=== PATIENT | male | born 1950 | race Caucasian/White ===

== ENCOUNTER → 2016-10-21 | Outpatient (CLI) | payer MEDICAID ==
[~2016-10-21] MED LIST: ASPI-496 PO; CALC-141 PO; ENAL1TAB5 PO; FURO-93 PO; HYDR-3341 PO; OMEP1CAP24 PO
== END | disposition home or self-care (01) ==
LOC: CFH 07:58
PROVIDERS: ATTEND Nurse Practitioner
DX: R91.1 Solitary pulmonary nodule (principal); G47.33 Obstructive sleep apnea (adult) (pediatric)
CPT/HCPCS: 71250

== ENCOUNTER → 2017-06-23 | Outpatient (CLI) | payer MEDICARE | END | disposition home or self-care (01) | LOC: CFH 07:50 | PROVIDERS: ATTEND Internal Medicine | DX: R91.8 Other nonspecific abnormal finding of lung field (principal); I25.10 Atherosclerotic heart disease of native coronary artery without angina pectoris | CPT/HCPCS: 71250 ==

== ENCOUNTER → 2018-09-20 | Outpatient (CLI) | payer MEDICARE | END | disposition home or self-care (01) | LOC: CFH 08:02 | PROVIDERS: ATTEND Nurse Practitioner | DX: R91.1 Solitary pulmonary nodule (principal) | CPT/HCPCS: 71250 ==

== ENCOUNTER 2019-05-06 08:18 | Emergency (ER) | payer MEDICARE ==
[~2019-05-06] VITALS: Ht 185.4 cm; Wt 169.5 kg
[2019-05-06 08:22] VITALS: BP 123/64
--- NOTE | 2019-05-06 09:05 | NUR ---
THIS IS A 68 YO M W/ C/O VOMITING AFTER MEALS FOR 2 WEEKS, RIGHT SIDED PAIN AND SOB. PATIENT DENIES DIARRHEA OR CONSTIPATION. RESPIRATIONS ARE EVEN AND UNLABORED. PATIENT IS IN NO ACUTE DISTRESS. PATIENT IS RESTING ON GURNEY AWARE OF POC. DENIES FURTHER NEEDS AT THIS TIME.
--- NOTE | 2019-05-06 09:08 | NUR ---
PATIENT TO RADIOLOGY.
[2019-05-06 09:15] LABS: BASOPHILS # (AUTO) 0.02 x10^3/uL (0-0.1); BASOPHILS % (AUTO) 0 % (0-1); EOSINOPHILS # (AUTO) 0.39 x10^3/uL (0-0.4); EOSINOPHILS % (AUTO) 5 % (1-7); LYMPHOCYTES # (AUTO) 1.39 x10^3/uL (1-3.4); LYMPHOCYTES % (AUTO) 16 % (22-44); MD NO; MEAN CORPUSCULAR HEMOGLOBIN 23.1 pg (27.5-34.5); MEAN CORPUSCULAR HGB CONC 30.2 g/dL (33.2-36.2); MEAN CORPUSCULAR VOLUME 76.5 fL (81-97); MONOCYTES # (AUTO) 0.63 x10^3/uL (0.2-0.8); MONOCYTES % (AUTO) 7 % (2-9); NEUTROPHILS # (AUTO) 6.14 x10^3/uL (1.8-6.8); NEUTROPHILS % (AUTO) 72 % (42-75); PLATELET COUNT 353 x10^3/uL (130-400); RED BLOOD COUNT 3.52 x10^6/uL (4.38-5.82); RED CELL DISTRIBUTION WIDTH 19.7 % (9.4-14.8)
--- NOTE | 2019-05-06 09:18 | NUR ---
PATIENT BACK FROM RADIOLOGY.
--- NOTE | 2019-05-06 09:24 | NUR ---
PATIENT AMBULATED TO THE BATHROOM WITH A STEADY GAIT AND GIVEN URINE SPECIMEN CONTAINER.
[2019-05-06 09:26] LABS: ANION GAP 5 mmol/L (5-15); CALCIUM 8.2 mg/dL (8.5-10.1); CHLORIDE 108 mmol/L (98-107)
[2019-05-06 09:29] LABS: ALANINE AMINOTRANSFERASE 20 U/L (12-78); ALKALINE PHOSPHATASE 238 U/L (45-117); BILIRUBIN,TOTAL 0.5 mg/dL (0.2-1.0); CREATININE 1.29 mg/dL (0.7-1.3); TOTAL PROTEIN 6.6 g/dL (6.4-8.2)
[2019-05-06 10:03] LABS: MICROSCOPIC NOT IND
[2019-05-06 10:08] LABS: CULTURE INDICATED? NO
[2019-05-06 10:29] LABS: TROPONIN I < 0.015 ng/mL (0.000-0.045)
--- NOTE | 2019-05-06 10:50 | NUR ---
DR. WAGGONER AT BEDSIDE AND IS RECOMMENDING HOSPITAL ADMISSION BUT PATIENT IS REFUSING TO BE ADMITTED. EDUCATED PATIENT ON LOW SALT DIET. ROOM AIR SPO2=97%.
--- NOTE | 2019-05-06 11:06 | NUR ---
Patient given discharge instructions and they have confirmed that they understand the instructions. Patient ambulatory with steady gait.
== END 2019-05-06 11:07 | disposition home or self-care (01) ==
LOC: ED 09:50
DX: K59.00 Constipation, unspecified (principal); I11.0 Hypertensive heart disease with heart failure; I50.9 Heart failure, unspecified; D64.9 Anemia, unspecified; K21.9 Gastro-esophageal reflux disease without esophagitis
CPT/HCPCS: 36415; 74022; 80053; 81003; 83690; 83880; 84484; 85025; 93005; 99284

== ENCOUNTER 2019-05-08 08:18 | Inpatient (IN) | payer MEDICARE ==
[~2019-05-08] VITALS: Ht 185.4 cm; Wt 162.6 kg
--- NOTE | 2019-05-08 08:49 | NUR ---
FIRST CONTACT WITH PT. PT C/O WEAKNESS, SOB X 2-2.5 WEEKS, POSSIBLE DX OF CHF AND ANEMIA, SEEN FOR SAME ON WEDNESDAY, DECLINED ADMIT DENIES CHEST PAIN OR PRESSURE/N/V. PT'S AOX4. RESPS EVEN AND UNLABORED. ALL MONITORS IN PLACE. CALL LIGHT WITHIN REACH. PA AT BEDSIDE TO EVALUATE AT THIS TIME.
[2019-05-08] MEDS ORDERED: OMEP-110 PO (08:52)
[2019-05-08] MEDS ORDERED: ATOR40TA78 PO (08:53)
[2019-05-08] MEDS ORDERED: POTA8TAB PO (08:53)
[2019-05-08] MEDS ORDERED: AMLO-150 PO (08:54)
--- NOTE | 2019-05-08 08:58 | NUR ---
PT BACK TO ROOM FROM RAD.
[2019-05-08 09:20] LABS: ALANINE AMINOTRANSFERASE 23 U/L (12-78); ALBUMIN 3.2 g/dL (3.4-5.0); ANION GAP 8 mmol/L (5-15); CALCIUM 8.3 mg/dL (8.5-10.1); CHLORIDE 108 mmol/L (98-107)
[2019-05-08 09:24] LABS: ALKALINE PHOSPHATASE 222 U/L (45-117); BILIRUBIN,TOTAL 0.6 mg/dL (0.2-1.0); TOTAL PROTEIN 6.8 g/dL (6.4-8.2); TROPONIN I < 0.015 ng/mL (0.000-0.045)
[2019-05-08 09:47] LABS: MEAN CORPUSCULAR HEMOGLOBIN 22.9 pg (27.5-34.5); MEAN CORPUSCULAR VOLUME 76.8 fL (81-97); MEAN PLATELET VOLUME 8.6 fL (7.4-10.4); PLATELET COUNT 373 x10^3/uL (130-400); RED BLOOD COUNT 3.82 x10^6/uL (4.38-5.82); RED CELL DISTRIBUTION WIDTH 19.1 % (9.4-14.8)
[2019-05-08 09:48] LABS: MEAN CORPUSCULAR HGB CONC 29.8 g/dL (33.2-36.2)
--- NOTE | 2019-05-08 09:49 | NUR ---
PT IS USING [employer] AT THIS TIME.
[2019-05-08] MEDS ORDERED: FUROSEMIDE 40 MG/4 ML IV ONE (10:00)
[2019-05-08] MEDS ORDERED: SODIUM CHLORIDE FLUSH 10ML SYR IVF PRN (10:00)
[2019-05-08] MEDS ORDERED: FUROSEMIDE 40 MG/4 ML ONE (10:06)
--- NOTE | 2019-05-08 10:11 | NUR ---
PT MEDICATED PER EMAR. PT TOLERATED WELL. URINAL AND BEDSIDE COMMODE AT BEDSIDE.
[2019-05-08 10:34] LABS: BASOPHILS # (AUTO) 0.08 x10^3/uL (0-0.1); BASOPHILS % (AUTO) 1 % (0-1); EOSINOPHILS # (AUTO) 0.35 x10^3/uL (0-0.4); EOSINOPHILS % (AUTO) 4 % (1-7); LYMPHOCYTES # (AUTO) 1.23 x10^3/uL (1-3.4); LYMPHOCYTES % (AUTO) 15 % (22-44); MD SCAN; MONOCYTES # (AUTO) 0.62 x10^3/uL (0.2-0.8); MONOCYTES % (AUTO) 8 % (2-9); NEUTROPHILS # (AUTO) 5.85 x10^3/uL (1.8-6.8); NEUTROPHILS % (AUTO) 72 % (42-75)
[2019-05-08] MEDS ORDERED: ONDANSETRON 2MG/ML, 2ML IVPush PRN (11:00)
[2019-05-08] MEDS ORDERED: NICOTINE 21 MG/24 HR PATCH.TD24 TD SCH (11:00)
[2019-05-08] MEDS ORDERED: ACETAMINOPHEN 325 MG TABLET PO PRN (11:00)
[2019-05-08] MEDS: INSULIN LISPRO 100 UNITS/ML, PEN SQ-INSULIN SCH ×3 (11:00→20:53)
[2019-05-08] MEDS ORDERED: ONDANSETRON ODT 4 MG PO PRN (11:00)
--- NOTE | 2019-05-08 11:02 | NUR ---
PT REFUSED NICOTIN PATCH AT THIS TIME. PT'S BG 93, NO INSULIN GIVEN PER PROTOCOL.
[2019-05-08] MEDS ORDERED: HEPARIN 5,000 UNITS/ML, 1ML ONE ×2 (11:04→18:54)
--- NOTE | 2019-05-08 11:16 | NUR ---
Oscar lopez in [facility] - 05/08/19 at [address] AT THIS TIME.
[2019-05-08] MEDS: HEPARIN 5,000 UNITS/ML, 1ML SQ SCH ×2 (11:18→19:12)
--- NOTE | 2019-05-08 11:18 | NUR ---
PT MEDICATED PER EMAR. PT TOLERATED WELL.
--- NOTE | 2019-05-08 11:40 | NUR ---
water given at this time. hospitalist ok'd to give some water.
--- NOTE | 2019-05-08 12:04 | NUR ---
hospital bed requesting from house keeping.
--- NOTE | 2019-05-08 12:10 | NUR ---
task rn note: PT SITTING UP IN BED WATCHING TELEVISION. NAD NOTED AT THIS TIME. RESPIRATIONS EVEN AND UNLABORED. CURRENTLY AWAITING HOSPITAL BED, WHICH ACCORDING TO PRIMARY RN HAS BEEN ORDERED.
--- NOTE | 2019-05-08 13:31 | NUR ---
DIETARY CALLED FOR PT'S TRAY AT THIS TIME. DIETARY AWARES OF NO CONCENTRATED SUGAR DIET FOR THIS PT.
--- NOTE | 2019-05-08 13:50 | NUR ---
HOSPITAL BED IN ROOM. PT RESTING IN HOSPITAL BED. ALL MONITORS IN PLACE. CALL LIGHT WITHIN REACH.
--- NOTE | 2019-05-08 13:55 | NUR ---
DIET TRAY PROVIDED AT THIS TIME.
--- NOTE | 2019-05-08 15:34 | NUR ---
BEDSIDE COMMODE AT BEDSIDE.
--- NOTE | 2019-05-08 16:04 | NUR ---
BG 96 AT THIS TIME.
--- NOTE | 2019-05-08 16:07 | NUR ---
MED ORDERED FROM PHARMACY AT THIS TIME.
[2019-05-08] MEDS: LACTOBACILLUS CHEW TABLET PO SCH ×2 (16:48→21:52)
--- NOTE | 2019-05-08 16:49 | NUR ---
PT MEDICATED PER EMAR. PT TOLERATED WELL.
--- NOTE | 2019-05-08 17:47 | NUR ---
DIET TRAY ORDERED AT THIS TIME.
[2019-05-08] MEDS ORDERED: CARVEDILOL 3.125 MG TABLET ONE (17:59)
[2019-05-08] MEDS: CARVEDILOL 6.25 MG TABLET PO SCH (18:00)
--- NOTE | 2019-05-08 18:05 | NUR ---
PT MEDICATED PER EMAR. PT TOLERATED WELL.
--- NOTE | 2019-05-08 18:37 | NUR ---
DIET TRAY PROVIDED AT THIS TIME.
--- NOTE | 2019-05-08 18:52 | NUR ---
Report from Jesusita PERSON. Pt eating dinner watching TV, TOMÁS, denies needs.
--- NOTE | 2019-05-08 18:59 | NUR ---
REPORT GIVEN TO HUMZA PERSON.
--- NOTE | 2019-05-08 20:14 | NUR ---
Pt resting in bed watching TV, denies needs.
--- NOTE | 2019-05-08 20:55 | NUR ---
Report called to Aditi PERSON on card tele. Floor ready for pt transport.
[2019-05-08 21:36] VITALS: BP 109/70
[2019-05-08] MEDS: ATORVASTATIN 20 MG TABLET PO SCH (21:52)
[2019-05-08] MEDS: NICOTINE 21 MG/24 HR PATCH.TD24 TD SCH (21:53)
[2019-05-09 00:39] VITALS: BP 115/70
[2019-05-09] MEDS: CARVEDILOL 6.25 MG TABLET PO SCH ×2 (04:16→17:28)
[2019-05-09] MEDS: HEPARIN 5,000 UNITS/ML, 1ML SQ SCH ×3 (04:16→19:59)
[2019-05-09 05:31] LABS: BASOPHILS # (AUTO) 0.08 x10^3/uL (0-0.1); BASOPHILS % (AUTO) 1 % (0-1); EOSINOPHILS # (AUTO) 0.33 x10^3/uL (0-0.4); EOSINOPHILS % (AUTO) 5 % (1-7); LYMPHOCYTES # (AUTO) 1.18 x10^3/uL (1-3.4); LYMPHOCYTES % (AUTO) 16 % (22-44); MD NO; MEAN CORPUSCULAR HEMOGLOBIN 22.7 pg (27.5-34.5); MEAN CORPUSCULAR HGB CONC 30.1 g/dL (33.2-36.2); MEAN CORPUSCULAR VOLUME 75.5 fL (81-97); MEAN PLATELET VOLUME 8.8 fL (7.4-10.4); MONOCYTES # (AUTO) 0.45 x10^3/uL (0.2-0.8); MONOCYTES % (AUTO) 6 % (2-9); NEUTROPHILS # (AUTO) 5.16 x10^3/uL (1.8-6.8); NEUTROPHILS % (AUTO) 72 % (42-75); PLATELET COUNT 353 x10^3/uL (130-400); RED BLOOD COUNT 3.56 x10^6/uL (4.38-5.82); RED CELL DISTRIBUTION WIDTH 19.4 % (9.4-14.8)
[2019-05-09 05:40] LABS: CHLORIDE 104 mmol/L (98-107)
[2019-05-09 05:52] LABS: % IRON SATURATION 5 % (20-55); ANION GAP 4 mmol/L (5-15); CALCIUM 8.5 mg/dL (8.5-10.1); CREATININE 1.38 mg/dL (0.7-1.3); IRON LEVEL 21 mcg/dL (65-175); TOTAL IRON BINDING CAPACITY 451 mcg/dL (250-450)
[2019-05-09] MEDS: INSULIN LISPRO 100 UNITS/ML, PEN SQ-INSULIN SCH ×4 (07:00→19:52)
[2019-05-09 07:20] VITALS: BP 118/75
[2019-05-09] MEDS: SENNA/DOCUSATE TABLET PO SCH (09:30)
[2019-05-09] MEDS: OMEPRAZOLE 20 MG CAPSULE.DR PO SCH (09:30)
[2019-05-09] MEDS: LACTOBACILLUS CHEW TABLET PO SCH ×3 (09:30→19:59)
[2019-05-09] MEDS: IRON SUCROSE COMPLEX 100MG/5ML IV SCH (10:45)
[2019-05-09 13:33] VITALS: BP 121/70
[2019-05-09] MEDS: FUROSEMIDE 20 MG/2 ML IV SCH (17:28)
[2019-05-09] MEDS: NICOTINE 21 MG/24 HR PATCH.TD24 TD SCH (19:25)
[2019-05-09 19:49] VITALS: BP 115/69
[2019-05-09] MEDS: ATORVASTATIN 20 MG TABLET PO SCH (19:59)
[2019-05-10 01:19] VITALS: BP 119/72
[2019-05-10] MEDS: HEPARIN 5,000 UNITS/ML, 1ML SQ SCH ×3 (03:11→19:43)
[2019-05-10] MEDS: CARVEDILOL 6.25 MG TABLET PO SCH ×2 (06:23→17:10)
[2019-05-10 06:48] LABS: ANION GAP 8 mmol/L (5-15); CALCIUM 8.6 mg/dL (8.5-10.1); CHLORIDE 106 mmol/L (98-107); CREATININE 1.31 mg/dL (0.7-1.3)
[2019-05-10 06:51] LABS: MEAN CORPUSCULAR HEMOGLOBIN 22.6 pg (27.5-34.5); MEAN CORPUSCULAR VOLUME 75.4 fL (81-97); MEAN PLATELET VOLUME 8.5 fL (7.4-10.4); PLATELET COUNT 346 x10^3/uL (130-400); RED BLOOD COUNT 3.65 x10^6/uL (4.38-5.82); RED CELL DISTRIBUTION WIDTH 19.4 % (9.4-14.8)
[2019-05-10 07:15] LABS: BASOPHILS # (AUTO) 0.05 x10^3/uL (0-0.1); BASOPHILS % (AUTO) 1 % (0-1); EOSINOPHILS # (AUTO) 0.37 x10^3/uL (0-0.4); EOSINOPHILS % (AUTO) 5 % (1-7); LYMPHOCYTES # (AUTO) 1.32 x10^3/uL (1-3.4); LYMPHOCYTES % (AUTO) 19 % (22-44); MD SCAN; MONOCYTES # (AUTO) 0.55 x10^3/uL (0.2-0.8); MONOCYTES % (AUTO) 8 % (2-9); NEUTROPHILS # (AUTO) 4.71 x10^3/uL (1.8-6.8); NEUTROPHILS % (AUTO) 67 % (42-75)
[2019-05-10] MEDS: INSULIN LISPRO 100 UNITS/ML, PEN SQ-INSULIN SCH ×4 (07:35→19:48)
[2019-05-10 07:53] VITALS: BP 115/72
[2019-05-10] MEDS: IRON SUCROSE COMPLEX 100MG/5ML IV SCH ×2 (08:02→11:26)
[2019-05-10] MEDS: LACTOBACILLUS CHEW TABLET PO SCH ×3 (08:03→19:43)
[2019-05-10] MEDS: SENNA/DOCUSATE TABLET PO SCH (08:03)
[2019-05-10] MEDS: FUROSEMIDE 20 MG/2 ML IV SCH ×3 (08:03→17:09)
[2019-05-10] MEDS: OMEPRAZOLE 20 MG CAPSULE.DR PO SCH (08:04)
[2019-05-10 13:48] VITALS: BP 130/70
[2019-05-10 18:56] VITALS: BP 119/69
[2019-05-10] MEDS: ATORVASTATIN 20 MG TABLET PO SCH (19:43)
[2019-05-10] MEDS: NICOTINE 21 MG/24 HR PATCH.TD24 TD SCH (19:44)
[2019-05-11 00:50] VITALS: BP 112/69
[2019-05-11] MEDS: HEPARIN 5,000 UNITS/ML, 1ML SQ SCH (03:18)
[2019-05-11 04:47] LABS: MEAN CORPUSCULAR HEMOGLOBIN 23.1 pg (27.5-34.5); MEAN CORPUSCULAR HGB CONC 30.4 g/dL (33.2-36.2); MEAN CORPUSCULAR VOLUME 76.1 fL (81-97); MEAN PLATELET VOLUME 8.4 fL (7.4-10.4); PLATELET COUNT 368 x10^3/uL (130-400); RED BLOOD COUNT 3.67 x10^6/uL (4.38-5.82); RED CELL DISTRIBUTION WIDTH 18.9 % (9.4-14.8)
[2019-05-11 04:52] LABS: ALBUMIN 3.2 g/dL (3.4-5.0); ANION GAP 6 mmol/L (5-15); CALCIUM 8.6 mg/dL (8.5-10.1); CHLORIDE 106 mmol/L (98-107); CREATININE 1.49 mg/dL (0.7-1.3)
[2019-05-11 05:46] LABS: BASOPHILS # (AUTO) 0.07 x10^3/uL (0-0.1); BASOPHILS % (AUTO) 1 % (0-1); EOSINOPHILS # (AUTO) 0.32 x10^3/uL (0-0.4); EOSINOPHILS % (AUTO) 4 % (1-7); LYMPHOCYTES # (AUTO) 1.51 x10^3/uL (1-3.4); LYMPHOCYTES % (AUTO) 19 % (22-44); MD SCAN; MONOCYTES # (AUTO) 0.68 x10^3/uL (0.2-0.8); MONOCYTES % (AUTO) 9 % (2-9); NEUTROPHILS # (AUTO) 5.25 x10^3/uL (1.8-6.8); NEUTROPHILS % (AUTO) 67 % (42-75)
[2019-05-11 05:53] VITALS: BP 118/73
[2019-05-11] MEDS: CARVEDILOL 6.25 MG TABLET PO SCH (05:56)
[2019-05-11] MEDS: INSULIN LISPRO 100 UNITS/ML, PEN SQ-INSULIN SCH (07:00)
[2019-05-11 07:05] VITALS: BP 122/74
[2019-05-11] MEDS: IRON SUCROSE COMPLEX 100MG/5ML IV SCH (07:58)
[2019-05-11] MEDS: FUROSEMIDE 20 MG/2 ML IV SCH (07:58)
[2019-05-11] MEDS: LACTOBACILLUS CHEW TABLET PO SCH (07:59)
[2019-05-11] MEDS: SENNA/DOCUSATE TABLET PO SCH (07:59)
[2019-05-11] MEDS: OMEPRAZOLE 20 MG CAPSULE.DR PO SCH (07:59)
[2019-05-11] MEDS ORDERED: CARV6.2512 PO (08:55)
[2019-05-11] MEDS ORDERED: FURO-93 PO (08:55)
[2019-05-11] MEDS ORDERED: FERR325T18 PO (08:55)
== END 2019-05-11 11:23 | disposition home or self-care (01) | DRG 292 ==
LOC: ED 10:00 → EDIP 10:05 → 5SO 21:05 → DCLOUNGE 05-11 11:09
PROVIDERS: ADMIT Internal Medicine; ATTEND Hospitalist
DX: I11.0 Hypertensive heart disease with heart failure (principal); Z68.42 Body mass index [BMI] 45.0-49.9, adult; E66.01 Morbid (severe) obesity due to excess calories; D50.9 Iron deficiency anemia, unspecified; G47.30 Sleep apnea, unspecified; I50.43 Acute on chronic combined systolic (congestive) and diastolic (congestive) heart failure; F17.210 Nicotine dependence, cigarettes, uncomplicated; J44.9 Chronic obstructive pulmonary disease, unspecified; K21.9 Gastro-esophageal reflux disease without esophagitis; K59.00 Constipation, unspecified; E78.5 Hyperlipidemia, unspecified; R73.03 Prediabetes; Z71.6 Tobacco abuse counseling; Z88.8 Allergy status to other drugs, medicaments and biological substances; Z86.73 Personal history of transient ischemic attack (TIA), and cerebral infarction without residual deficits
CPT/HCPCS: 36415; 71045; 74022; 80048; 80053; 81003; 82040; 82274; 82728; 82962; 83036; 83540; 83550; 83690; 83735; 83880; 84100; 84484; 85025; 85379; 87070; 87205; 93005; 93306; 96374; G0378; J1644; J1756; J1940

== ENCOUNTER → 2019-10-19 | Outpatient (CLI) | payer MEDICARE ==
[~2019-10-19] MED LIST changes: +AMLO-150 PO; +ATOR40TA78 PO; +CARV6.2512 PO; +FERR325T18 PO; +OMEP-110 PO; +POTA8TAB PO
== END | disposition home or self-care (01) ==
LOC: CVU 06:45
PROVIDERS: ATTEND Physician Assistant Medical
DX: I08.3 Combined rheumatic disorders of mitral, aortic and tricuspid valves (principal); I11.0 Hypertensive heart disease with heart failure; I50.21 Acute systolic (congestive) heart failure; R06.02 Shortness of breath
CPT/HCPCS: 93306

== ENCOUNTER 2019-10-20 13:46 | Emergency (ER) | payer MEDICARE ==
[~2019-10-20] VITALS: Ht 185.4 cm; Wt 170.9 kg
--- NOTE | 2019-10-20 14:58 | NUR ---
Pt to room from lobby via wheelchair.
--- NOTE | 2019-10-20 15:21 | NUR ---
PT HAS CO GENERALIZED PAIN IN ABDOMEN, ARMS AND LEGS. PT STATES HE IS SWOLLEN AND ON A NEW DIURETIC. PT STATES HE HAS BEEN VOIDING, BUT SYMPTOMS WORSENED, RECENT COLONOSCOPY AND RECIEVED BLOOD. PT STATES HE MAY BE FLUID OVERLOADED. PT SOB SITTING. PLACED ON 2 L O2. PACKAGE LINE OPERATOR APPLIED. EXTREMITIES 3+ EDEMA, SCROTAL EDEMA
[2019-10-20] MEDS ORDERED: SODIUM CHLORIDE FLUSH 10ML SYR IVF ONE (16:00)
[2019-10-20 16:09] LABS: BASOPHILS # (AUTO) 0.02 x10^3/uL (0-0.1); BASOPHILS % (AUTO) 0 % (0-1); EOSINOPHILS # (AUTO) 0.47 x10^3/uL (0-0.4); EOSINOPHILS % (AUTO) 5 % (1-7); LYMPHOCYTES # (AUTO) 1.04 x10^3/uL (1-3.4); LYMPHOCYTES % (AUTO) 12 % (22-44); MD NO; MEAN CORPUSCULAR HEMOGLOBIN 26.7 pg (27.5-34.5); MEAN CORPUSCULAR HGB CONC 30.8 g/dL (33.2-36.2); MEAN CORPUSCULAR VOLUME 86.9 fL (81-97); MEAN PLATELET VOLUME 8.3 fL (7.4-10.4); MONOCYTES # (AUTO) 0.78 x10^3/uL (0.2-0.8); MONOCYTES % (AUTO) 9 % (2-9); NEUTROPHILS # (AUTO) 6.58 x10^3/uL (1.8-6.8); NEUTROPHILS % (AUTO) 74 % (42-75); PLATELET COUNT 329 x10^3/uL (130-400); RED BLOOD COUNT 3.45 x10^6/uL (4.38-5.82); RED CELL DISTRIBUTION WIDTH 20.5 % (9.4-14.8)
[2019-10-20 16:20] LABS: ALANINE AMINOTRANSFERASE 17 U/L (12-78); ALBUMIN 3.6 g/dL (3.4-5.0); ANION GAP 7 mmol/L (5-15); CALCIUM 9.5 mg/dL (8.5-10.1); CHLORIDE 100 mmol/L (98-107); CREATININE 1.78 mg/dL (0.7-1.3)
[2019-10-20 16:24] LABS: ALKALINE PHOSPHATASE 226 U/L (45-117); BILIRUBIN,TOTAL 0.7 mg/dL (0.2-1.0); TOTAL PROTEIN 7.8 g/dL (6.4-8.2); TROPONIN I < 0.015 ng/mL (0.000-0.045)
--- NOTE | 2019-10-20 16:42 | NUR ---
PT BACK FROM IMAGING. VOIDED 800 ML CLEAR YELLOW
--- NOTE | 2019-10-20 17:50 | NUR ---
MD AT BEDSIDE, PLAN TO DC
--- NOTE | 2019-10-20 18:45 | NUR ---
DPatient/Caregiver given discharge instructions and they have confirmed that they understand the instructions. Patient wheeled to dc area
[2019-10-20 18:46] VITALS: BP 145/85
== END 2019-10-20 18:47 | disposition home or self-care (01) ==
LOC: ED 15:03
DX: M79.10 Myalgia, unspecified site (principal); R06.00 Dyspnea, unspecified; R07.9 Chest pain, unspecified; R94.31 Abnormal electrocardiogram [ECG] [EKG]; I11.0 Hypertensive heart disease with heart failure; I50.9 Heart failure, unspecified; K21.9 Gastro-esophageal reflux disease without esophagitis; F17.200 Nicotine dependence, unspecified, uncomplicated
CPT/HCPCS: 36415; 71046; 80053; 83880; 84484; 85025; 93005; 99285

== ENCOUNTER 2019-12-12 07:35 | Outpatient (CLI) | payer MEDICARE | END 2019-12-12 23:59 | disposition home or self-care (01) | LOC: CVU 07:35 | PROVIDERS: ATTEND Nurse Practitioner Family | DX: I11.9 Hypertensive heart disease without heart failure (principal); I08.0 Rheumatic disorders of both mitral and aortic valves | CPT/HCPCS: 93308; 93321; 93325 ==

== ENCOUNTER → 2019-12-19 | Outpatient (CLI) | payer MEDICARE ==
[2019-12-19 13:01] LABS: BASOPHILS # (AUTO) 0.09 x10^3/uL (0-0.1); BASOPHILS % (AUTO) 1 % (0-1); EOSINOPHILS # (AUTO) 0.39 x10^3/uL (0-0.4); EOSINOPHILS % (AUTO) 5 % (1-7); LYMPHOCYTES # (AUTO) 0.92 x10^3/uL (1-3.4); LYMPHOCYTES % (AUTO) 11 % (22-44); MD NO; MEAN CORPUSCULAR HEMOGLOBIN 26.8 pg (27.5-34.5); MEAN CORPUSCULAR HGB CONC 30.3 g/dL (33.2-36.2); MEAN CORPUSCULAR VOLUME 88.4 fL (81-97); MEAN PLATELET VOLUME 8.9 fL (7.4-10.4); MONOCYTES # (AUTO) 0.99 x10^3/uL (0.2-0.8); MONOCYTES % (AUTO) 12 % (2-9); NEUTROPHILS # (AUTO) 5.85 x10^3/uL (1.8-6.8); NEUTROPHILS % (AUTO) 71 % (42-75); PLATELET COUNT 270 x10^3/uL (130-400); RED BLOOD COUNT 3.66 x10^6/uL (4.38-5.82)
[2019-12-19 13:23] LABS: CHLORIDE 103 mmol/L (98-107)
[2019-12-19 13:38] LABS: ANION GAP 8 mmol/L (5-15); CALCIUM 9.6 mg/dL (8.5-10.1); CREATININE 1.55 mg/dL (0.7-1.3)
== END | disposition home or self-care (01) ==
LOC: CFH 08:56
PROVIDERS: ATTEND Nurse Practitioner Family
DX: E78.2 Mixed hyperlipidemia (principal); I11.9 Hypertensive heart disease without heart failure; J84.9 Interstitial pulmonary disease, unspecified; D64.9 Anemia, unspecified; I34.0 Nonrheumatic mitral (valve) insufficiency; I50.21 Acute systolic (congestive) heart failure; R06.02 Shortness of breath
CPT/HCPCS: 36415; 71046; 80048; 83880; 85025

== ENCOUNTER 2020-01-10 09:28 | Day surgery (SDC) | payer MEDICARE ==
[~2020-01-10] VITALS: Ht 185.4 cm; Wt 170.4 kg
[2020-01-10] MEDS ORDERED: SODIUM CHLORIDE 0.9% 1,000 ML IV SCH ×2 (10:30→12:56)
[2020-01-10] MEDS ORDERED: TORS20TA2 PO (10:36)
[2020-01-10] MEDS ORDERED: Calcium PO (10:36)
[2020-01-10] MEDS ORDERED: POTA10TA6 PO (10:36)
[2020-01-10] MEDS ORDERED: Albuterol HFA INH (10:39)
[2020-01-10 10:46] VITALS: BP 132/78
[2020-01-10 11:07] LABS: MEAN CORPUSCULAR HEMOGLOBIN 26.5 pg (27.5-34.5); MEAN CORPUSCULAR HGB CONC 29.4 g/dL (33.2-36.2); MEAN CORPUSCULAR VOLUME 90.2 fL (81-97); MEAN PLATELET VOLUME 7.7 fL (7.4-10.4); PLATELET COUNT 280 x10^3/uL (130-400); RED BLOOD COUNT 3.34 x10^6/uL (4.38-5.82); RED CELL DISTRIBUTION WIDTH 20.4 % (9.4-14.8)
[2020-01-10 11:11] LABS: ANION GAP 4 mmol/L (5-15); CALCIUM 9.2 mg/dL (8.5-10.1); CHLORIDE 107 mmol/L (98-107); CREATININE 1.35 mg/dL (0.7-1.3)
[2020-01-10 11:18] LABS: BASOPHILS # (AUTO) 0.02 x10^3/uL (0-0.1); BASOPHILS % (AUTO) 0 % (0-1); EOSINOPHILS # (AUTO) 0.38 x10^3/uL (0-0.4); EOSINOPHILS % (AUTO) 6 % (1-7); LYMPHOCYTES # (AUTO) 0.92 x10^3/uL (1-3.4); LYMPHOCYTES % (AUTO) 14 % (22-44); MD SCAN; MONOCYTES % (AUTO) 11 % (2-9); NEUTROPHILS % (AUTO) 69 % (42-75)
[2020-01-10] MEDS ORDERED: PROPOFOL 10 MG/ML, 20ML ONE (11:25)
[2020-01-10] MEDS ORDERED: BIVALIRUDIN 250 MG ONE (11:42)
[2020-01-10] MEDS ORDERED: LIDOCAINE-MPF 1%, 5ML ONE (11:42)
[2020-01-10] MEDS ORDERED: TICAGRELOR 90 MG TABLET ONE (11:42)
[2020-01-10] MEDS ORDERED: MIDAZOLAM 1 MG/ML, 5ML ONE (11:42)
[2020-01-10] MEDS ORDERED: FENTANYL PF 100 MCG/2ML ONE (11:42)
[2020-01-10] MEDS ORDERED: VERAPAMIL 2.5 MG/ML, 2ML ONE (11:42)
[2020-01-10] MEDS ORDERED: HEPARIN 1,000 UNITS/ML, 10ML ONE (11:43)
[2020-01-10] MEDS ORDERED: NITROGLYCERIN 30 MCG/ML, 20ML VIAL ONE (11:43)
== END 2020-01-10 15:23 | disposition home or self-care (01) ==
LOC: CACL 09:28
PROVIDERS: ATTEND Internal Medicine Cardiovascular Disease
DX: R07.89 Other chest pain (principal); I34.0 Nonrheumatic mitral (valve) insufficiency; Z20.828 Contact with and (suspected) exposure to other viral communicable diseases; I11.0 Hypertensive heart disease with heart failure; I50.21 Acute systolic (congestive) heart failure; E78.2 Mixed hyperlipidemia; F17.210 Nicotine dependence, cigarettes, uncomplicated; Z79.899 Other long term (current) drug therapy; Z88.1 Allergy status to other antibiotic agents; Z82.49 Family history of ischemic heart disease and other diseases of the circulatory system
CPT/HCPCS: 36415; 80048; 85025; 87635; 93312; 93321; 93325; 93460; 99156; C1769; C1894; J1644; J2250; J2704; J3010; Q9967; J0583

== ENCOUNTER → 2020-04-11 | Outpatient (CLI) | payer MEDICARE ==
[~2020-04-11] MED LIST changes: +ALBU18HF INH; +Albuterol HFA INH; +Calcium PO; +FEROSOL PO; +FERR324T18 PO; +FURO80TA77 PO; +PANT40TA6 PO; +POTA10TA17 PO; +POTA10TA6 PO; +SENN1TAB94 PO; +TORS20TA2 PO
== END | disposition home or self-care (01) ==
LOC: STAR 09:27
PROVIDERS: ATTEND Internal Medicine
DX: Z20.828 Contact with and (suspected) exposure to other viral communicable diseases (principal)
CPT/HCPCS: 87635

== ENCOUNTER 2020-04-16 07:15 | Outpatient (CLI) | payer MEDICARE ==
[2020-04-16] VITALS (15 sets, daily range): BP systolic 129–156; BP diastolic 68–82
[~2020-04-16] VITALS: Ht 185.4 cm; Wt 167.3 kg
[2020-04-16] MEDS ORDERED: SODIUM CHLORIDE 0.9% 1,000ML IV SCH (08:00)
[2020-04-16] MEDS ORDERED: ONDANSETRON 2MG/ML, 2ML IV PRN (08:00)
[2020-04-16] MEDS ORDERED: POTA20TA6 PO (08:29)
[2020-04-16] MEDS ORDERED: ATOR40TA78 PO (08:29)
[2020-04-16 08:32] LABS: INTERNATIONAL NORMALIZED RATIO 1.29 (0.93-1.1); PROTHROMBIN TIME 13.6 Seconds (9.6-11.5)
[2020-04-16 08:34] LABS: ANION GAP 6 mmol/L (5-15); CHLORIDE 103 mmol/L (98-107); CREATININE 1.68 mg/dL (0.7-1.3)
[2020-04-16 08:37] LABS: BASOPHILS % (AUTO) 2 % (0-1); EOSINOPHILS % (AUTO) 7 % (1-7); LYMPHOCYTES % (AUTO) 10 % (22-44); MEAN CORPUSCULAR HEMOGLOBIN 25.6 pg (27.5-34.5); MEAN PLATELET VOLUME 7.9 fL (7.4-10.4); MONOCYTES % (AUTO) 12 % (2-9); NEUTROPHILS % (AUTO) 69 % (42-75); PLATELET COUNT 304 x10^3/uL (130-400); RED BLOOD COUNT 2.62 x10^6/uL (4.38-5.82)
[2020-04-16 08:40] LABS: MEAN CORPUSCULAR HGB CONC 29.4 g/dL (33.2-36.2)
[2020-04-16 08:41] LABS: MD NO
== END 2020-04-16 23:59 | disposition home or self-care (01) ==
LOC: CACL 07:15 → INFUSION 07:15 → UNDOADMIN 07:58 → ORIP 07:58 → EDSTATUS 09:30 → INFUSION 23:59
PROVIDERS: ATTEND Internal Medicine Cardiovascular Disease
DX: I34.0 Nonrheumatic mitral (valve) insufficiency (principal); D50.9 Iron deficiency anemia, unspecified; R94.31 Abnormal electrocardiogram [ECG] [EKG]; I13.0 Hypertensive heart and chronic kidney disease with heart failure and stage 1 through stage 4 chronic kidney disease, or unspecified chronic kidney disease; I50.32 Chronic diastolic (congestive) heart failure; N18.9 Chronic kidney disease, unspecified; K21.9 Gastro-esophageal reflux disease without esophagitis; E78.5 Hyperlipidemia, unspecified; E66.9 Obesity, unspecified; Z68.42 Body mass index [BMI] 45.0-49.9, adult; Z87.891 Personal history of nicotine dependence
CPT/HCPCS: 36415; 36430; 80048; 83880; 85025; 85610; 86850; 86900; 86923; 93005; P9016

== ENCOUNTER 2020-04-20 12:05 | Emergency (ER) | payer MEDICARE ==
[~2020-04-20] VITALS: Ht 185.4 cm; Wt 169.1 kg
[~2020-04-20 12:05] MED LIST changes: +POTA20TA6 PO
[2020-04-20] MEDS ORDERED: SODIUM CHLORIDE FLUSH 10ML SYR IVF ONE (14:30)
[2020-04-20 14:48] LABS: BASOPHILS % (AUTO) 2 % (0-1); EOSINOPHILS % (AUTO) 7 % (1-7); LYMPHOCYTES % (AUTO) 10 % (22-44); MEAN CORPUSCULAR HGB CONC 30.1 g/dL (33.2-36.2); MEAN PLATELET VOLUME 8.3 fL (7.4-10.4); MONOCYTES % (AUTO) 11 % (2-9); NEUTROPHILS % (AUTO) 71 % (42-75); PLATELET COUNT 281 x10^3/uL (130-400); RED BLOOD COUNT 3.14 x10^6/uL (4.38-5.82); RED CELL DISTRIBUTION WIDTH 21.7 % (9.4-14.8)
[2020-04-20 14:53] LABS: MD NO
[2020-04-20 15:01] LABS: CHLORIDE 103 mmol/L (98-107)
[2020-04-20 15:07] LABS: ANION GAP 6 mmol/L (5-15)
[2020-04-20 15:09] LABS: ALANINE AMINOTRANSFERASE 14 U/L (12-78); ALBUMIN 3.2 g/dL (3.4-5.0); ALKALINE PHOSPHATASE 299 U/L (45-117); BILIRUBIN,TOTAL 1.3 mg/dL (0.2-1.0); CALCIUM 8.7 mg/dL (8.5-10.1); CREATININE 1.54 mg/dL (0.7-1.3); TOTAL PROTEIN 7.1 g/dL (6.4-8.2)
[2020-04-20 16:12] VITALS: BP 124/54
== END 2020-04-20 16:14 | disposition other institution (70) ==
LOC: ED 13:06
DX: D53.9 Nutritional anemia, unspecified (principal); R06.02 Shortness of breath; I11.0 Hypertensive heart disease with heart failure; K21.9 Gastro-esophageal reflux disease without esophagitis; I50.9 Heart failure, unspecified; Z87.891 Personal history of nicotine dependence
CPT/HCPCS: 36415; 80053; 83605; 85025; 86850; 86900; 93005; 99284

== ENCOUNTER 2020-05-30 12:53 | Inpatient (IN) | payer MEDICARE ==
[~2020-05-30] VITALS: Ht 185.4 cm; Wt 159.0 kg
[2020-05-30] MEDS ORDERED: SODIUM CHLORIDE FLUSH 10ML SYR IVF ONE (13:30)
--- NOTE | 2020-05-30 13:32 | NUR ---
PT TO ROOM 11 W/ C/O INCREASING WEIGHT GAIN 20 LBS X 2 WEEKS. PT STATES HE HAS HX CHF HAS BEEN ADMMITTED FOR THIS BEFORE. PT NOTED TO HAVE HARD TIME BREATHING. PLACED ON 6L NC SATIN 97%.PT NOTED TO HAVE EXTREME EDEMA THROUGHOUT LEGS, THIGHS, AND ABDOMEN. PT ON MONITORS. PIV INITIATED. WARM BLANKET PROVIDED.
[2020-05-30 13:41] LABS: RED CELL DISTRIBUTION WIDTH 22.3 % (9.4-14.8)
--- NOTE | 2020-05-30 13:46 | NUR ---
UA COLLECTED, LABELED AND SENT TO LAB.
[2020-05-30 13:52] LABS: ALANINE AMINOTRANSFERASE 13 U/L (12-78); ALBUMIN 3.1 g/dL (3.4-5.0); ANION GAP 7 mmol/L (5-15); CALCIUM 8.6 mg/dL (8.5-10.1); CHLORIDE 99 mmol/L (98-107); CREATININE 1.86 mg/dL (0.7-1.3)
[2020-05-30 14:00] LABS: % IRON SATURATION 4 % (20-55); ALKALINE PHOSPHATASE 301 U/L (45-117); BILIRUBIN,TOTAL 1.4 mg/dL (0.2-1.0); IRON LEVEL 19 mcg/dL (65-175); TOTAL IRON BINDING CAPACITY 440 mcg/dL (250-450); TROPONIN I < 0.015 ng/mL (0.000-0.045)
[2020-05-30 14:04] LABS: MICROSCOPIC INDICATED
[2020-05-30 14:09] LABS: MEAN CORPUSCULAR HEMOGLOBIN 26.4 pg (27.5-34.5); PLATELET COUNT 325 x10^3/uL (130-400); RED BLOOD COUNT 3.34 x10^6/uL (4.38-5.82)
[2020-05-30 14:10] LABS: MEAN CORPUSCULAR HGB CONC 29.8 g/dL (33.2-36.2)
[2020-05-30] MEDS ORDERED: FUROSEMIDE 40 MG/4 ML ONE (14:11)
[2020-05-30 14:13] LABS: MD YES
[2020-05-30 14:14] LABS: BAND#(MANUAL) 0.08 x10^3/uL; BANDS%(MANUAL) 1 % (0-7); EOS#(MANUAL) 0.32 x10^3/uL (0.0-0.4); EOS% (MANUAL) 4 % (1-7); LYMPHS% (MANUAL) 10 % (22-44); MONOS#(MANUAL) 0.48 x10^3/uL (0.3-2.7); MONOS% (MANUAL) 6 % (2-9); SEG#(MANUAL) 6.32 x10^3/uL (1.8-6.8); SEGS% (MANUAL) 79 % (42-75)
[2020-05-30 14:15] LABS: ANISOCYTOSIS 2+; HYPOCHROMIA 1+; MICROCYTOSIS 1+; POLYCHROMASIA 1+
[2020-05-30 14:16] LABS: <PLATELET ESTIMATE> ADEQUATE; <PLT MORPHOLOGY> NORMAL PLT MORPH; TEAR DROPS 1+
[2020-05-30] MEDS ORDERED: FUROSEMIDE 40 MG/4 ML IV ONE (14:30)
--- NOTE | 2020-05-30 14:37 | NUR ---
PT RESTING ON GURNEY. NADN. JUAREZ.
--- NOTE | 2020-05-30 14:39 | NUR ---
HOSPITAL BED ORDERED FOR PT.
[2020-05-30] MEDS ORDERED: BISACODYL 10 MG SUPP PR PRN (15:30)
[2020-05-30] MEDS ORDERED: ALBUTEROL HFA 90 MCG/SPRAY INH PRN (15:30)
[2020-05-30] MEDS ORDERED: DOCUSATE 100 MG CAPSULE PO PRN (15:30)
[2020-05-30] MEDS ORDERED: hydrALAzine 20 MG/ML, 1ML IVPush PRN (15:30)
[2020-05-30] MEDS ORDERED: POLYETHYLENE GLYCOL 17 GM PACKET PO PRN (15:30)
[2020-05-30] MEDS ORDERED: OXYcodone IR 5MG TABLET PO PRN (15:30)
[2020-05-30] MEDS ORDERED: LORazepam 2 MG/ML, 1ML IVPush PRN (15:30)
[2020-05-30] MEDS ORDERED: ONDANSETRON 2MG/ML, 2ML IVPush PRN (15:30)
[2020-05-30] MEDS ORDERED: TEMAZEPAM 15 MG CAPSULE PO PRN (15:30)
[2020-05-30] MEDS ORDERED: MELATONIN 5 MG TABLET PO PRN (15:30)
[2020-05-30] MEDS ORDERED: ACETAMINOPHEN 325 MG TABLET PO PRN (15:30)
[2020-05-30] MEDS ORDERED: SENNA/DOCUSATE TABLET PO PRN (15:30)
--- NOTE | 2020-05-30 15:39 | NUR ---
PT MOVED FROM [facility] TO HOSPITAL BED. REPOSITIONED FOR COMFORT.
[2020-05-30] MEDS ORDERED: FUROSEMIDE 80 MG TABLET PO SCH (16:00)
[2020-05-30] MEDS ORDERED: FUROSEMIDE 40 MG/4 ML IV SCH (17:00)
--- NOTE | 2020-05-30 17:07 | NUR ---
YELLOW SLIP SENT TO PHARMACY FOR MEDS PER JUL.
--- NOTE | 2020-05-30 17:09 | NUR ---
PT PROVIDED W/ DINNER TRAY.
[2020-05-30] MEDS ORDERED: CARVEDILOL 6.25 MG TABLET ONE (17:26)
[2020-05-30] MEDS: CARVEDILOL 6.25 MG TABLET PO SCH (17:28)
[2020-05-30] MEDS: BUMETANIDE 0.25 MG/ML, 4ML IV SCH ×3 (17:29→20:44)
[2020-05-30] MEDS: METOLAZONE 5 MG TABLET PO SCH (17:29)
--- NOTE | 2020-05-30 19:22 | NUR ---
PT RESTING IN BED. NADN.
--- NOTE | 2020-05-30 20:40 | NUR ---
REPORT GIVEN TO FAYE INMAN RN. ALL QUESTIONS ANSWERED. AWAITING PT TRANSPORT.
[2020-05-30] MEDS: ATORVASTATIN 20 MG TABLET PO SCH (20:44)
[2020-05-30] MEDS: FERROUS GLUCONATE 324 MG TABLET PO SCH (20:44)
[2020-05-30] MEDS ORDERED: POTASSIUM CHLORIDE 20 MEQ TAB.ER.PRT PO SCH (21:00)
[2020-05-30] MEDS ORDERED: FAMOTIDINE 20 MG TABLET PO SCH (21:00)
--- NOTE | 2020-05-30 21:03 | NUR ---
PT HAD ONE BM PRIOR TO TRANSPORT. PT SHEETS CHANGED. [facility] PERFORMED. PT RESTING ON BED. TRANSPORTED TO FLOOR W/ ALL PERSONAL BELONGINGS.
[2020-05-30 21:24] VITALS: BP 125/86
[2020-05-30] MEDS ORDERED: FERR325T16 PO (21:32)
[2020-05-30] MEDS ORDERED: BISA-49 PO (21:40)
[2020-05-31 03:05] VITALS: BP 118/72
[2020-05-31] MEDS: CARVEDILOL 6.25 MG TABLET PO SCH ×2 (04:33→17:05)
[2020-05-31 06:11] LABS: BASOPHILS % (AUTO) 2 % (0-1); EOSINOPHILS % (AUTO) 5 % (1-7); LYMPHOCYTES % (AUTO) 9 % (22-44); MEAN CORPUSCULAR HEMOGLOBIN 26.6 pg (27.5-34.5); MEAN CORPUSCULAR HGB CONC 30.7 g/dL (33.2-36.2); MEAN PLATELET VOLUME 7.9 fL (7.4-10.4); MONOCYTES % (AUTO) 12 % (2-9); NEUTROPHILS % (AUTO) 73 % (42-75); PLATELET COUNT 311 x10^3/uL (130-400); RED BLOOD COUNT 3.17 x10^6/uL (4.38-5.82)
[2020-05-31 06:15] LABS: ANION GAP 9 mmol/L (5-15); CALCIUM 8.8 mg/dL (8.5-10.1); CHLORIDE 99 mmol/L (98-107); CREATININE 1.76 mg/dL (0.7-1.3)
[2020-05-31 06:46] LABS: MD SCAN
[2020-05-31] MEDS: BUMETANIDE 0.25 MG/ML, 4ML IV SCH ×3 (09:09→20:21)
[2020-05-31] MEDS: METOLAZONE 5 MG TABLET PO SCH (09:10)
[2020-05-31] MEDS: OMEPRAZOLE 20 MG CAPSULE.DR PO SCH (09:10)
[2020-05-31] MEDS: FERROUS GLUCONATE 324 MG TABLET PO SCH (09:10)
[2020-05-31 09:15] VITALS: BP 117/63
[2020-05-31] MEDS ORDERED: IRON SUCROSE COMPLEX 100MG/5ML IV SCH (13:00)
[2020-05-31 13:40] VITALS: BP 121/77
[2020-05-31] MEDS: CEFTRIAXONE PMX 2GM/50ML 50 ML IVPB SCH (13:59)
[2020-05-31] MEDS ORDERED: ERGOCALCIFEROL 50,000 UNIT CAPSULE PO SCH (16:30)
[2020-05-31 17:01] LABS: CALCIUM 9.2 mg/dL (8.5-10.1)
[2020-05-31 19:27] VITALS: BP 131/69
[2020-05-31] MEDS: ATORVASTATIN 20 MG TABLET PO SCH (20:21)
[2020-06-01 00:56] VITALS: BP 128/76
[2020-06-01 05:11] LABS: BASOPHILS % (AUTO) 2 % (0-1); EOSINOPHILS % (AUTO) 6 % (1-7); LYMPHOCYTES % (AUTO) 9 % (22-44); MEAN CORPUSCULAR HGB CONC 30.9 g/dL (33.2-36.2); MEAN PLATELET VOLUME 7.8 fL (7.4-10.4); MONOCYTES % (AUTO) 15 % (2-9); NEUTROPHILS % (AUTO) 68 % (42-75); PLATELET COUNT 320 x10^3/uL (130-400); RED BLOOD COUNT 3.16 x10^6/uL (4.38-5.82); RED CELL DISTRIBUTION WIDTH 21.9 % (9.4-14.8)
[2020-06-01 05:12] LABS: MD NO
[2020-06-01 05:24] LABS: ALBUMIN 3.2 g/dL (3.4-5.0); ANION GAP 8 mmol/L (5-15); CALCIUM 9.2 mg/dL (8.5-10.1); CHLORIDE 97 mmol/L (98-107); CREATININE 1.78 mg/dL (0.7-1.3)
[2020-06-01 06:26] VITALS: BP 136/74
[2020-06-01] MEDS: METOLAZONE 5 MG TABLET PO SCH (06:29)
[2020-06-01] MEDS: CARVEDILOL 6.25 MG TABLET PO SCH ×2 (06:29→17:28)
[2020-06-01] MEDS: OMEPRAZOLE 20 MG CAPSULE.DR PO SCH (06:29)
[2020-06-01 06:52] VITALS: BP 112/71
[2020-06-01] MEDS ORDERED: POTASSIUM CHLORIDE 20 MEQ TAB.ER.PRT PO ONE (07:00)
[2020-06-01] MEDS: IRON SUCROSE COMPLEX 100MG/5ML IV SCH (08:09)
[2020-06-01] MEDS: BUMETANIDE 0.25 MG/ML, 4ML IV SCH ×3 (08:09→21:47)
[2020-06-01] MEDS: CEFTRIAXONE PMX 2GM/50ML 50 ML IVPB SCH (12:40)
[2020-06-01] MEDS: ALLOPURINOL 300 MG TABLET PO SCH (12:40)
[2020-06-01 13:02] VITALS: BP 126/73
[2020-06-01 21:44] VITALS: BP 114/73
[2020-06-01] MEDS: POTASSIUM CHLORIDE 20 MEQ PACKET PO SCH (21:47)
[2020-06-01] MEDS: ATORVASTATIN 20 MG TABLET PO SCH (21:47)
[2020-06-02 02:37] VITALS: BP 117/71
[2020-06-02 06:02] LABS: BASOPHILS % (AUTO) 0 % (0-1); EOSINOPHILS % (AUTO) 7 % (1-7); LYMPHOCYTES % (AUTO) 9 % (22-44); MEAN CORPUSCULAR HEMOGLOBIN 26.7 pg (27.5-34.5); MEAN CORPUSCULAR HGB CONC 30.9 g/dL (33.2-36.2); MEAN PLATELET VOLUME 7.3 fL (7.4-10.4); MONOCYTES % (AUTO) 13 % (2-9); NEUTROPHILS % (AUTO) 71 % (42-75); PLATELET COUNT 311 x10^3/uL (130-400); RED BLOOD COUNT 3.29 x10^6/uL (4.38-5.82); RED CELL DISTRIBUTION WIDTH 21.7 % (9.4-14.8)
[2020-06-02 06:06] VITALS: BP 123/75
[2020-06-02 06:08] LABS: ALBUMIN 3.2 g/dL (3.4-5.0); ANION GAP 9 mmol/L (5-15); CHLORIDE 95 mmol/L (98-107)
[2020-06-02] MEDS: METOLAZONE 5 MG TABLET PO SCH (06:09)
[2020-06-02] MEDS: CARVEDILOL 6.25 MG TABLET PO SCH ×2 (06:09→17:33)
[2020-06-02] MEDS: OMEPRAZOLE 20 MG CAPSULE.DR PO SCH (06:09)
[2020-06-02 06:12] LABS: ALANINE AMINOTRANSFERASE 12 U/L (12-78); ALKALINE PHOSPHATASE 283 U/L (45-117); BILIRUBIN,TOTAL 1.2 mg/dL (0.2-1.0); CREATININE 1.65 mg/dL (0.7-1.3); TOTAL PROTEIN 7.2 g/dL (6.4-8.2)
[2020-06-02 06:25] LABS: MD NO
[2020-06-02 07:30] VITALS: BP 114/72
[2020-06-02] MEDS: ALLOPURINOL 300 MG TABLET PO SCH (08:24)
[2020-06-02] MEDS: POTASSIUM CHLORIDE 20 MEQ PACKET PO SCH ×3 (08:24→20:20)
[2020-06-02] MEDS: IRON SUCROSE COMPLEX 100MG/5ML IV SCH (08:24)
[2020-06-02] MEDS: BUMETANIDE 0.25 MG/ML, 4ML IV SCH ×3 (08:25→20:20)
[2020-06-02 13:17] VITALS: BP 129/79
[2020-06-02] MEDS: CEFTRIAXONE PMX 2GM/50ML 50 ML IVPB SCH (13:34)
[2020-06-02 19:02] VITALS: BP 149/79
[2020-06-02] MEDS: ATORVASTATIN 20 MG TABLET PO SCH (20:20)
[2020-06-03] VITALS (8 sets, daily range): BP systolic 105–128; BP diastolic 66–77
[2020-06-03 05:11] LABS: ALBUMIN 3.3 g/dL (3.4-5.0); ANION GAP 8 mmol/L (5-15); CALCIUM 9.2 mg/dL (8.5-10.1); CHLORIDE 92 mmol/L (98-107); CREATININE 1.67 mg/dL (0.7-1.3)
[2020-06-03 05:16] LABS: MEAN CORPUSCULAR HGB CONC 31.2 g/dL (33.2-36.2); MEAN PLATELET VOLUME 7.9 fL (7.4-10.4); PLATELET COUNT 290 x10^3/uL (130-400); RED BLOOD COUNT 3.33 x10^6/uL (4.38-5.82); RED CELL DISTRIBUTION WIDTH 22.5 % (9.4-14.8)
[2020-06-03 06:01] LABS: MD YES
[2020-06-03 06:03] LABS: EOS#(MANUAL) 0.22 x10^3/uL (0.0-0.4); EOS% (MANUAL) 3 % (1-7); LYMPH#(MANUAL) 0.51 x10^3/uL (1-3.4); LYMPHS% (MANUAL) 7 % (22-44); MONOS#(MANUAL) 1.02 x10^3/uL (0.3-2.7); MONOS% (MANUAL) 14 % (2-9); SEG#(MANUAL) 5.55 x10^3/uL (1.8-6.8); SEGS% (MANUAL) 76 % (42-75)
[2020-06-03 06:04] LABS: ANISOCYTOSIS 1+; HYPOCHROMIA 1+; OVALOCYTES 1+; TEAR DROPS 1+
[2020-06-03 06:05] LABS: <PLATELET ESTIMATE> ADEQUATE; <PLT MORPHOLOGY> NORMAL PLT MORPH; POLYCHROMASIA 1+
[2020-06-03] MEDS: METOLAZONE 5 MG TABLET PO SCH (06:18)
[2020-06-03] MEDS: OMEPRAZOLE 20 MG CAPSULE.DR PO SCH (06:18)
[2020-06-03] MEDS: CARVEDILOL 6.25 MG TABLET PO SCH ×2 (06:19→18:31)
[2020-06-03] MEDS: IRON SUCROSE COMPLEX 100MG/5ML IV SCH (10:20)
[2020-06-03] MEDS: ALLOPURINOL 300 MG TABLET PO SCH (10:21)
[2020-06-03] MEDS: POTASSIUM CHLORIDE 20 MEQ PACKET PO SCH (10:21)
[2020-06-03] MEDS: BUMETANIDE 0.25 MG/ML, 4ML IV SCH ×3 (10:22→20:47)
[2020-06-03] MEDS ORDERED: POTASSIUM CHLORIDE 20 MEQ in SODIUM CHLORIDE 0.9% 250 ML IV ONE (11:30)
[2020-06-03] MEDS: CEFTRIAXONE PMX 2GM/50ML 50 ML IVPB SCH (14:04)
[2020-06-03] MEDS: POTASSIUM CHLORIDE 20 MEQ TAB.ER.PRT PO SCH (20:47)
[2020-06-03] MEDS: ATORVASTATIN 20 MG TABLET PO SCH (20:47)
[2020-06-04 00:14] VITALS: BP 105/57
[2020-06-04 05:13] LABS: BASOPHILS % (AUTO) 2 % (0-1); EOSINOPHILS % (AUTO) 8 % (1-7); LYMPHOCYTES % (AUTO) 8 % (22-44); MEAN CORPUSCULAR HEMOGLOBIN 26.7 pg (27.5-34.5); MEAN CORPUSCULAR HGB CONC 30.8 g/dL (33.2-36.2); MEAN PLATELET VOLUME 7.6 fL (7.4-10.4); MONOCYTES % (AUTO) 15 % (2-9); NEUTROPHILS % (AUTO) 68 % (42-75); PLATELET COUNT 307 x10^3/uL (130-400); RED BLOOD COUNT 3.39 x10^6/uL (4.38-5.82); RED CELL DISTRIBUTION WIDTH 22.3 % (9.4-14.8)
[2020-06-04 05:19] LABS: MD NO
[2020-06-04 05:24] LABS: ANION GAP 7 mmol/L (5-15); CALCIUM 9.4 mg/dL (8.5-10.1); CHLORIDE 92 mmol/L (98-107); CREATININE 1.59 mg/dL (0.7-1.3)
[2020-06-04] MEDS: CARVEDILOL 6.25 MG TABLET PO SCH (06:24)
[2020-06-04] MEDS: OMEPRAZOLE 20 MG CAPSULE.DR PO SCH (06:24)
[2020-06-04] MEDS: METOLAZONE 5 MG TABLET PO SCH (06:24)
[2020-06-04 06:26] VITALS: BP 143/75
[2020-06-04 07:38] VITALS: BP 135/75
[2020-06-04] MEDS: IRON SUCROSE COMPLEX 100MG/5ML IV SCH (08:56)
[2020-06-04] MEDS: ALLOPURINOL 300 MG TABLET PO SCH (08:56)
[2020-06-04] MEDS: POTASSIUM CHLORIDE 20 MEQ TAB.ER.PRT PO SCH (08:56)
[2020-06-04] MEDS: BUMETANIDE 0.25 MG/ML, 4ML IV SCH (08:57)
[2020-06-04] MEDS ORDERED: POTA20TA6 PO (12:41)
[2020-06-04 13:25] VITALS: BP 124/70
[2020-06-04] MEDS: CEFTRIAXONE PMX 2GM/50ML 50 ML IVPB SCH (14:00)
[2020-06-04 14:10] LABS: ANA SCREEN NEGATIVE (Negative)
== END 2020-06-04 14:27 | disposition home or self-care (01) | DRG 291 ==
LOC: ED 13:22 → EDIP 15:04 → 5SO 21:11
PROVIDERS: ADMIT Internal Medicine; ATTEND Internal Medicine
DX: I13.0 Hypertensive heart and chronic kidney disease with heart failure and stage 1 through stage 4 chronic kidney disease, or unspecified chronic kidney disease (principal); I50.33 Acute on chronic diastolic (congestive) heart failure; K92.1 Melena; J98.11 Atelectasis; J96.11 Chronic respiratory failure with hypoxia; N17.9 Acute kidney failure, unspecified; D50.0 Iron deficiency anemia secondary to blood loss (chronic); E55.9 Vitamin D deficiency, unspecified; E66.01 Morbid (severe) obesity due to excess calories; E78.5 Hyperlipidemia, unspecified; E87.6 Hypokalemia; I27.20 Pulmonary hypertension, unspecified; I34.0 Nonrheumatic mitral (valve) insufficiency; N18.9 Chronic kidney disease, unspecified; G47.33 Obstructive sleep apnea (adult) (pediatric); K21.9 Gastro-esophageal reflux disease without esophagitis; E79.0 Hyperuricemia without signs of inflammatory arthritis and tophaceous disease; Z79.899 Other long term (current) drug therapy; Z87.891 Personal history of nicotine dependence; Z79.891 Long term (current) use of opiate analgesic; Z79.01 Long term (current) use of anticoagulants; Z88.1 Allergy status to other antibiotic agents; Z91.013 Allergy to seafood; Z91.018 Allergy to other foods; Z82.5 Family history of asthma and other chronic lower respiratory diseases; Z82.49 Family history of ischemic heart disease and other diseases of the circulatory system; Z80.9 Family history of malignant neoplasm, unspecified; Z84.89 Family history of other specified conditions
CPT/HCPCS: 36415; 71045; 76770; 80048; 80053; 80069; 80074; 81001; 82306; 82310; 82330; 82728; 83540; 83550; 83735; 83880; 83970; 84100; 84155; 84156; 84165; 84166; 84439; 84443; 84484; 84550; 85025; 86038; 86850; 86900; 87077; 87086; 87186; 93005; 93970; 99285; C8929; G0378; J0696; J1756; J1940; J3480; Q9957; J7050

== ENCOUNTER 2020-08-06 06:34 | Inpatient (IN) | payer MEDICARE ==
[~2020-08-06] VITALS: Ht 185.4 cm; Wt 135.0 kg
[~2020-08-06 06:34] MED LIST changes: +BISA-49 PO; +FERR325T16 PO; +METO5TAB5 PO; +SPIR25TA5 PO
[2020-08-06] MEDS ORDERED: ONDANSETRON 2MG/ML, 2ML IV PRN ×2 (07:30→15:00)
[2020-08-06 07:44] LABS: BASOPHILS % (AUTO) 3 % (0-1); EOSINOPHILS % (AUTO) 8 % (1-7); LYMPHOCYTES % (AUTO) 9 % (22-44); MEAN CORPUSCULAR HEMOGLOBIN 26.8 pg (27.5-34.5); MONOCYTES % (AUTO) 13 % (2-9); NEUTROPHILS % (AUTO) 67 % (42-75); PLATELET COUNT 503 x10^3/uL (130-400); RED BLOOD COUNT 3.02 x10^6/uL (4.38-5.82); RED CELL DISTRIBUTION WIDTH 20.5 % (9.4-14.8)
[2020-08-06 07:47] VITALS: BP 132/57
[2020-08-06 07:47] LABS: MD NO
[2020-08-06 07:54] LABS: ANION GAP 9 mmol/L (5-15); CALCIUM 9.6 mg/dL (8.5-10.1); CHLORIDE 101 mmol/L (98-107); CREATININE 1.71 mg/dL (0.7-1.3)
[2020-08-06 07:56] LABS: INTERNATIONAL NORMALIZED RATIO 1.11 (0.93-1.1); PROTHROMBIN TIME 11.9 Seconds (9.6-11.5)
[2020-08-06] MEDS ORDERED: DIPHENHYDRAMINE 50 MG/ML, 1ML IVPush PRN ×2 (08:00→12:00)
[2020-08-06] MEDS ORDERED: FAMOTIDINE 20 MG/2 ML IVPush ONE (08:30)
[2020-08-06] MEDS ORDERED: methylPREDNISolone SOD SUCC 125 MG/2 ML IVPush ONE (08:30)
[2020-08-06] MEDS ORDERED: SODIUM CHLORIDE 0.9% 1,000ML IV SCH (08:30)
[2020-08-06] MEDS ORDERED: methylPREDNISolone SOD SUCC 125 MG/2 ML ONE (08:34)
[2020-08-06] MEDS ORDERED: DIPHENHYDRAMINE 50 MG/ML, 1ML ONE (08:34)
[2020-08-06] MEDS ORDERED: FENTANYL PF 250 MCG/5ML ONE (09:32)
[2020-08-06] MEDS ORDERED: CEFAZOLIN 1,000 MG ONE (09:36)
[2020-08-06] MEDS ORDERED: PROPOFOL 10 MG/ML, 20ML ONE (09:36)
[2020-08-06] MEDS ORDERED: SUCCINYLCHOLINE 20 MG/ML, 10ML ONE (09:36)
[2020-08-06] MEDS ORDERED: HEPARIN 1,000 UNITS/ML, 10ML ONE ×2 (10:24)
[2020-08-06] MEDS ORDERED: ONDANSETRON 2MG/ML, 2ML ONE (10:28)
[2020-08-06] MEDS ORDERED: ROCURONIUM 10MG/ML,5ML ONE (10:28)
[2020-08-06] MEDS ORDERED: BISACODYL 5 MG EC TABLET PO PRN (11:30)
[2020-08-06] MEDS ORDERED: ALBUTEROL HFA 90 MCG/SPRAY INH PRN (11:30)
[2020-08-06] MEDS: POTASSIUM CHLORIDE 20 MEQ TAB.ER.PRT PO SCH ×2 (11:30→20:00)
[2020-08-06] MEDS ORDERED: MAALOX/HYOSCYAMINE/LIDOCAINE 45 ML BTL PO PRN (12:00)
[2020-08-06] MEDS ORDERED: ACETAMINOPHEN 325 MG TABLET PO PRN ×2 (12:00)
[2020-08-06] MEDS ORDERED: OXYcodone 5 MG/5 ML ORAL.SOL UDC PO PRN (12:00)
[2020-08-06] MEDS ORDERED: HYDROcodone/APAP 5/325 TABLET PO PRN (12:00)
[2020-08-06] MEDS ORDERED: hydrALAzine 20 MG/ML, 1ML IV PRN (12:00)
[2020-08-06] MEDS ORDERED: EPHEDRINE 50 MG/ML, 1ML IVPush PRN (12:00)
[2020-08-06] MEDS ORDERED: ONDANSETRON 2MG/ML, 2ML IVPush PRN (12:00)
[2020-08-06] MEDS ORDERED: EPHEDRINE 50 MG/ML, 1ML IM PRN (12:00)
[2020-08-06] MEDS ORDERED: morphine SULFATE 10 MG/ML, 1ML IVPush PRN (12:00)
[2020-08-06] MEDS ORDERED: PROMETHAZINE 25 MG/ML, 1ML IVPush PRN (12:00)
[2020-08-06] MEDS ORDERED: FENTANYL PF 100 MCG/2ML IV PRN (12:00)
[2020-08-06] MEDS ORDERED: DIAZEPAM 5 MG/ML, 2ML IVPush PRN (12:00)
[2020-08-06] MEDS ORDERED: POTASSIUM CHLORIDE 20 MEQ TAB.ER.PRT ONE (12:15)
[2020-08-06 13:26] VITALS: BP 138/71
[2020-08-06] MEDS: SODIUM CHLORIDE 0.9% 1,000 ML IV SCH ×2 (14:55→20:00)
[2020-08-06] MEDS: CLOPIDOGREL 75 MG TABLET PO SCH (15:41)
[2020-08-06] MEDS: FUROSEMIDE 80 MG TABLET PO SCH ×2 (15:41→20:00)
[2020-08-06] MEDS: PANTOPRAZOLE 40MG TABLET PO SCH (15:41)
[2020-08-06] MEDS: CARVEDILOL 6.25 MG TABLET PO SCH (17:37)
[2020-08-06 18:43] VITALS: BP 115/65
[2020-08-06] MEDS ORDERED: ATORVASTATIN 20 MG TABLET PO SCH (21:00)
[2020-08-07] VITALS (7 sets, daily range): BP systolic 109–129; BP diastolic 54–77
[2020-08-07] MEDS: CARVEDILOL 6.25 MG TABLET PO SCH (05:53)
[2020-08-07] MEDS: PANTOPRAZOLE 40MG TABLET PO SCH (05:53)
[2020-08-07 05:59] LABS: BASOPHILS % (AUTO) 1 % (0-1); EOSINOPHILS % (AUTO) 0 % (1-7); LYMPHOCYTES % (AUTO) 4 % (22-44); MEAN CORPUSCULAR HGB CONC 30.8 g/dL (33.2-36.2); MEAN PLATELET VOLUME 7.3 fL (7.4-10.4); MONOCYTES % (AUTO) 6 % (2-9); NEUTROPHILS % (AUTO) 90 % (42-75); PLATELET COUNT 455 x10^3/uL (130-400); RED BLOOD COUNT 2.69 x10^6/uL (4.38-5.82); RED CELL DISTRIBUTION WIDTH 20.7 % (9.4-14.8)
[2020-08-07] MEDS ORDERED: ASPIRIN 81 MG TABLET EC PO SCH (06:00)
[2020-08-07 06:02] LABS: ANION GAP 9 mmol/L (5-15); CALCIUM 9.2 mg/dL (8.5-10.1); CHLORIDE 100 mmol/L (98-107)
[2020-08-07 06:03] LABS: CREATININE 2.13 mg/dL (0.7-1.3)
[2020-08-07 06:31] LABS: MD MORPH REVIEW ONLY
[2020-08-07 06:32] LABS: ANISOCYTOSIS 1+; HYPOCHROMIA 1+; MICROCYTOSIS 1+; OVALOCYTES 1+; TARGET CELLS 1+; TEAR DROPS 1+
[2020-08-07 06:33] LABS: <PLATELET ESTIMATE> INCREASED; SMALL PLATELETS 1+
[2020-08-07] MEDS: SODIUM CHLORIDE 0.9% 1,000 ML IV SCH (08:00)
[2020-08-07] MEDS: CLOPIDOGREL 75 MG TABLET PO SCH (08:20)
[2020-08-07] MEDS: POTASSIUM CHLORIDE 20 MEQ TAB.ER.PRT PO SCH (08:20)
[2020-08-07] MEDS: FUROSEMIDE 80 MG TABLET PO SCH (08:21)
[2020-08-07] MEDS ORDERED: CLOPIDOGREL 75 MG TABLET PO SCH ×2 (09:00)
[2020-08-07] MEDS ORDERED: METOLAZONE 5 MG TABLET PO SCH (09:00)
[2020-08-07] MEDS ORDERED: CLOP75TA PO ×3 (14:54→15:13)
[2020-08-07] MEDS ORDERED: ASPI81TA45 PO ×2 (14:54→15:13)
[2020-08-07] MEDS ORDERED: ACET325T26 PO (14:54)
== END 2020-08-07 15:50 | disposition home or self-care (01) | DRG 266 ==
LOC: CACL 06:34 → ORIP 11:35 → 5SO 13:55 → DCLOUNGE 08-07 15:45
PROVIDERS: ADMIT Internal Medicine Cardiovascular Disease; ATTEND Internal Medicine Cardiovascular Disease
PROC: B24BZZ4 Ultrasonography of Heart with Aorta, Transesophageal (ICD-10-PCS; 2020-08-06)
PROC: 30233N1 Transfusion of Nonautologous Red Blood Cells into Peripheral Vein, Percutaneous Approach (ICD-10-PCS; 2020-08-06)
PROC: 02UG3JZ Supplement Mitral Valve with Synthetic Substitute, Percutaneous Approach (ICD-10-PCS; principal; 2020-08-06 10:00)
DX: I34.0 Nonrheumatic mitral (valve) insufficiency (principal); I50.33 Acute on chronic diastolic (congestive) heart failure; I13.0 Hypertensive heart and chronic kidney disease with heart failure and stage 1 through stage 4 chronic kidney disease, or unspecified chronic kidney disease; D64.9 Anemia, unspecified; E66.01 Morbid (severe) obesity due to excess calories; E78.2 Mixed hyperlipidemia; K21.9 Gastro-esophageal reflux disease without esophagitis; Z20.822 Contact with and (suspected) exposure to COVID-19; N18.9 Chronic kidney disease, unspecified; Z68.39 Body mass index [BMI] 39.0-39.9, adult; Z00.6 Encounter for examination for normal comparison and control in clinical research program
CPT/HCPCS: 33418; 36415; 76937; 80048; 83880; 85014; 85018; 85025; 85347; 85610; 86850; 86900; 86923; 87635; 93005; 93306; 93312; 93321; 93325; 93355; C1760; C1766; C1893; C1894; G0378; J0690; J1644; J2405; J2704; J3010; C1769; J0330; J1200; J2930; P9016

== ENCOUNTER 2020-08-23 13:14 | Inpatient (IN) | payer MEDICARE ==
[~2020-08-23] VITALS: Ht 185.4 cm; Wt 146.0 kg
[2020-08-23] VITALS (11 sets, daily range): BP systolic 104–121; BP diastolic 35–64
[~2020-08-23 13:14] MED LIST changes: +ACET325T26 PO; +ASPI81TA45 PO; +CLOP75TA PO; +FERR324T23 PO; -FERR325T16 PO
--- NOTE | 2020-08-23 14:04 | NUR ---
PIV inserted per order. Pt denies other needs, declines warm blanket offered.
[2020-08-23 14:09] LABS: BASOPHILS % (AUTO) 2 % (0-1); EOSINOPHILS % (AUTO) 6 % (1-7); LYMPHOCYTES % (AUTO) 8 % (22-44); MEAN CORPUSCULAR HEMOGLOBIN 27.4 pg (27.5-34.5); MEAN CORPUSCULAR HGB CONC 30.9 g/dL (33.2-36.2); MEAN PLATELET VOLUME 7.7 fL (7.4-10.4); MONOCYTES % (AUTO) 11 % (2-9); NEUTROPHILS % (AUTO) 73 % (42-75); PLATELET COUNT 281 x10^3/uL (130-400); RED BLOOD COUNT 1.75 x10^6/uL (4.38-5.82); RED CELL DISTRIBUTION WIDTH 23.2 % (9.4-14.8)
[2020-08-23 14:21] LABS: ALBUMIN 3.2 g/dL (3.4-5.0); ANION GAP 8 mmol/L (5-15); CALCIUM 8.9 mg/dL (8.5-10.1); CHLORIDE 97 mmol/L (98-107)
[2020-08-23 14:23] LABS: MD MORPH REVIEW ONLY
--- NOTE | 2020-08-23 14:23 | NUR ---
Critical labs recieved. Hbg 4.[address] Anne notified of critical labs and BP. No IVF at this time, blood to be ordered. Pt currently resting in bed, both side rails up, NADN. no other requests at this time
[2020-08-23 14:45] LABS: ANISOCYTOSIS 1+; MICROCYTOSIS 1+
[2020-08-23 14:46] LABS: HYPOCHROMIA 1+; OVALOCYTES 1+; STOMATOCYTES 1+; TEAR DROPS 1+
[2020-08-23 14:50] LABS: <PLATELET ESTIMATE> ADEQUATE; <PLT MORPHOLOGY> NORMAL PLT MORPH
[2020-08-23] MEDS ORDERED: POTASSIUM CHLORIDE 20 MEQ TAB.ER.PRT PO ONE (15:00)
[2020-08-23] MEDS ORDERED: POTASSIUM CHLORIDE 40 MEQ in SODIUM CHLORIDE 0.9% 1,000 ML IV ONE (15:00)
--- NOTE | 2020-08-23 15:46 | NUR ---
Pt currently has blood and potassium infusing, tolerating well, NADN, sitting up in bed, speakig in full sentences
--- NOTE | 2020-08-23 15:53 | NUR ---
Pt provided urinal at bedside
[2020-08-23] MEDS ORDERED: PANTOPRAZOLE 40 MG IV ONE (16:23)
[2020-08-23] MEDS ORDERED: SODIUM CHLORIDE FLUSH 10ML SYR IVF PRN (16:30)
[2020-08-23] MEDS ORDERED: PANTOPRAZOLE 40 MG IV IVPush ONE (16:30)
--- NOTE | 2020-08-23 17:11 | NUR ---
Pt up to floor via vivi
[2020-08-23] MEDS ORDERED: morphine SULFATE 10 MG/ML, 1ML IVPush PRN (17:30)
[2020-08-23] MEDS ORDERED: ONDANSETRON 2MG/ML, 2ML IVPush PRN (17:30)
[2020-08-23] MEDS: CARVEDILOL 6.25 MG TABLET PO SCH (18:00)
[2020-08-23] MEDS ORDERED: ALBUTEROL HFA 90 MCG/SPRAY INH PRN (18:00)
[2020-08-23] MEDS ORDERED: PANTOPRAZOLE 80 MG in SODIUM CHLORIDE 0.9% 50 ML IV ONE (18:00)
[2020-08-23] MEDS: NS + 20MEQ KCL 1,000 ML IV SCH (19:17)
[2020-08-23] MEDS: PANTOPRAZOLE 80 MG in SODIUM CHLORIDE 0.9% 100 ML IV SCH (19:41)
[2020-08-23] MEDS: ATORVASTATIN 20 MG TABLET PO SCH (20:28)
[2020-08-24] VITALS (15 sets, daily range): BP systolic 101–125; BP diastolic 62–75
[2020-08-24] MEDS: CARVEDILOL 6.25 MG TABLET PO SCH ×3 (05:29→18:13)
[2020-08-24] MEDS: PANTOPRAZOLE 80 MG in SODIUM CHLORIDE 0.9% 100 ML IV SCH (05:33)
[2020-08-24 08:23] LABS: BASOPHILS % (AUTO) 3 % (0-1); EOSINOPHILS % (AUTO) 6 % (1-7); LYMPHOCYTES % (AUTO) 7 % (22-44); MEAN CORPUSCULAR HEMOGLOBIN 28.3 pg (27.5-34.5); MEAN CORPUSCULAR HGB CONC 32.1 g/dL (33.2-36.2); MEAN PLATELET VOLUME 7.8 fL (7.4-10.4); MONOCYTES % (AUTO) 11 % (2-9); NEUTROPHILS % (AUTO) 74 % (42-75); PLATELET COUNT 262 x10^3/uL (130-400); RED CELL DISTRIBUTION WIDTH 18.2 % (9.4-14.8)
[2020-08-24 08:30] LABS: ALBUMIN 3.3 g/dL (3.4-5.0); ANION GAP 10 mmol/L (5-15); CALCIUM 8.7 mg/dL (8.5-10.1); CHLORIDE 103 mmol/L (98-107)
[2020-08-24 08:34] LABS: ALANINE AMINOTRANSFERASE 10 U/L (12-78); ALKALINE PHOSPHATASE 218 U/L (45-117); BILIRUBIN,TOTAL 2.2 mg/dL (0.2-1.0); CREATININE 1.61 mg/dL (0.7-1.3); TOTAL PROTEIN 6.7 g/dL (6.4-8.2)
[2020-08-24] MEDS: POTASSIUM CHLORIDE 20 MEQ PACKET PO SCH ×2 (08:58→11:50)
[2020-08-24 09:13] LABS: ANISOCYTOSIS 1+; HYPOCHROMIA 1+; MD MORPH REVIEW ONLY; OVALOCYTES 1+; POLYCHROMASIA 1+; TEAR DROPS 1+
[2020-08-24 09:14] LABS: <PLATELET ESTIMATE> ADEQUATE; <PLT MORPHOLOGY> NORMAL PLT MORPH
[2020-08-24] MEDS ORDERED: CHLORHEXIDINE 15 ML UDC ONE (12:37)
[2020-08-24 12:47] LABS: ANION GAP 8 mmol/L (5-15); CALCIUM 9.2 mg/dL (8.5-10.1); CHLORIDE 105 mmol/L (98-107); CREATININE 1.57 mg/dL (0.7-1.3)
[2020-08-24] MEDS ORDERED: PROPOFOL 10 MG/ML, 20ML ONE (13:09)
[2020-08-24] MEDS: NS + 20MEQ KCL 1,000 ML IV SCH (14:16)
[2020-08-24] MEDS: ATORVASTATIN 20 MG TABLET PO SCH (20:59)
[2020-08-25] VITALS (9 sets, daily range): BP systolic 103–132; BP diastolic 63–72
[2020-08-25] MEDS: NS + 20MEQ KCL 1,000 ML IV SCH ×2 (00:16→11:58)
[2020-08-25] MEDS: CARVEDILOL 6.25 MG TABLET PO SCH ×2 (05:27→17:56)
[2020-08-25] MEDS ORDERED: OMEPRAZOLE 20 MG CAPSULE.DR PO SCH (06:00)
[2020-08-25 07:47] LABS: BASOPHILS % (AUTO) 1 % (0-1); EOSINOPHILS % (AUTO) 7 % (1-7); LYMPHOCYTES % (AUTO) 7 % (22-44); MEAN CORPUSCULAR HEMOGLOBIN 27.9 pg (27.5-34.5); MEAN CORPUSCULAR HGB CONC 31.4 g/dL (33.2-36.2); MEAN PLATELET VOLUME 7.8 fL (7.4-10.4); MONOCYTES % (AUTO) 9 % (2-9); NEUTROPHILS % (AUTO) 75 % (42-75); PLATELET COUNT 239 x10^3/uL (130-400); RED BLOOD COUNT 2.56 x10^6/uL (4.38-5.82); RED CELL DISTRIBUTION WIDTH 18.3 % (9.4-14.8)
[2020-08-25 07:49] LABS: ANION GAP 9 mmol/L (5-15); CALCIUM 8.2 mg/dL (8.5-10.1); CHLORIDE 105 mmol/L (98-107); CREATININE 1.35 mg/dL (0.7-1.3)
[2020-08-25 08:05] LABS: MD NO
[2020-08-25] MEDS ORDERED: IRON DEXTRAN COMPLEX 25 MG in SODIUM CHLORIDE 0.9% 50 ML IV ONE (09:00)
[2020-08-25] MEDS ORDERED: EPINEPHRINE 1 MG/ML, 1ML SQ PRN (09:00)
[2020-08-25] MEDS ORDERED: IRON DEXTRAN COMPLEX IV ONE (10:00)
[2020-08-25] MEDS ORDERED: SODIUM CHLORIDE 0.9% IV ONE (10:00)
[2020-08-25] MEDS ORDERED: POTASSIUM CHLORIDE 20 MEQ TAB.ER.PRT PO ONE (15:00)
== END 2020-08-25 21:57 | disposition home or self-care (01) | DRG 377 ==
LOC: ED 15:41 → EDIP 16:23 → SUATTDRO 16:27 → 4EST 17:19
PROVIDERS: ADMIT Internal Medicine; ATTEND Internal Medicine
PROC: 30233N1 Transfusion of Nonautologous Red Blood Cells into Peripheral Vein, Percutaneous Approach (ICD-10-PCS; 2020-08-23)
PROC: 0W3P8ZZ Control Bleeding in Gastrointestinal Tract, Via Natural or Artificial Opening Endoscopic (ICD-10-PCS; principal; 2020-08-24)
DX: K31.811 Angiodysplasia of stomach and duodenum with bleeding (principal); I50.33 Acute on chronic diastolic (congestive) heart failure; I13.0 Hypertensive heart and chronic kidney disease with heart failure and stage 1 through stage 4 chronic kidney disease, or unspecified chronic kidney disease; D62 Acute posthemorrhagic anemia; Z68.41 Body mass index [BMI] 40.0-44.9, adult; Z20.822 Contact with and (suspected) exposure to COVID-19; E66.01 Morbid (severe) obesity due to excess calories; E78.5 Hyperlipidemia, unspecified; E87.6 Hypokalemia; E88.09 Other disorders of plasma-protein metabolism, not elsewhere classified; G47.33 Obstructive sleep apnea (adult) (pediatric); I34.0 Nonrheumatic mitral (valve) insufficiency; K21.9 Gastro-esophageal reflux disease without esophagitis; N18.30 Chronic kidney disease, stage 3 unspecified; Z79.82 Long term (current) use of aspirin; Z80.9 Family history of malignant neoplasm, unspecified; Z82.3 Family history of stroke; Z82.49 Family history of ischemic heart disease and other diseases of the circulatory system; Z87.891 Personal history of nicotine dependence; Z79.899 Other long term (current) drug therapy; Z88.8 Allergy status to other drugs, medicaments and biological substances; Z88.1 Allergy status to other antibiotic agents; Z91.013 Allergy to seafood
CPT/HCPCS: 36415; 80048; 80053; 82040; 83735; 84100; 85014; 85018; 85025; 86850; 86900; 86923; 87635; 96374; G0378; J1750; J2704; J3480; C9113; J7030; J7050; P9016

== ENCOUNTER 2020-08-30 10:31 | Outpatient (CLI) | payer MEDICARE ==
[~2020-08-30 10:31] MED LIST changes: -PLEASE ENTER HEIGHT AND WEIGHT MC SCH; +POTA-143 PO; -POTA20TA6 PO; -PROPOFOL 10 MG/ML, 20ML ONE
[2020-08-30 11:41] LABS: BASOPHILS % (AUTO) 2 % (0-1); EOSINOPHILS % (AUTO) 7 % (1-7); LYMPHOCYTES % (AUTO) 8 % (22-44); MEAN CORPUSCULAR HEMOGLOBIN 30.3 pg (27.5-34.5); MEAN CORPUSCULAR HGB CONC 32.1 g/dL (33.2-36.2); MEAN PLATELET VOLUME 7.1 fL (7.4-10.4); MONOCYTES % (AUTO) 10 % (2-9); NEUTROPHILS % (AUTO) 73 % (42-75); PLATELET COUNT 277 x10^3/uL (130-400); RED BLOOD COUNT 2.52 x10^6/uL (4.38-5.82); RED CELL DISTRIBUTION WIDTH 19.6 % (9.4-14.8)
[2020-10-16] MEDS ORDERED: DICL20GE BC (14:57)
[2020-10-30] MEDS ORDERED: IRON1TAB60 PO (18:07)
[2020-10-30] MEDS ORDERED: PSYL0.5215 PO (18:07)
[2020-11-01] MEDS ORDERED: PRED20TA PO (16:10)
[2020-11-01] MEDS ORDERED: ALLO100T30 PO ×3 (16:10→16:12)
[2020-11-01] MEDS ORDERED: POTA-143 PO (16:10)
[2020-11-01] MEDS ORDERED: HYDR-3241 PO (16:10)
[2020-11-01] MEDS ORDERED: FURO80TA77 PO (16:10)
== END 2020-08-30 23:59 | disposition home or self-care (01) ==
LOC: LAB 10:31
PROVIDERS: ATTEND Physician Assistant
DX: I11.0 Hypertensive heart disease with heart failure (principal); D64.9 Anemia, unspecified; E78.2 Mixed hyperlipidemia; I34.0 Nonrheumatic mitral (valve) insufficiency; I50.21 Acute systolic (congestive) heart failure; N28.9 Disorder of kidney and ureter, unspecified; R06.02 Shortness of breath
CPT/HCPCS: 36415; 85025; 93306

== ENCOUNTER → 2020-08-30 | Outpatient (CLI) | payer MEDICARE ==
[~2020-08-30] MED LIST changes: +PLEASE ENTER HEIGHT AND WEIGHT MC SCH; +PROPOFOL 10 MG/ML, 20ML ONE
== END | disposition home or self-care (01) ==
LOC: CVU 10:22
PROVIDERS: ATTEND Internal Medicine Cardiovascular Disease
DX: Z01.810 Encounter for preprocedural cardiovascular examination (principal); I08.3 Combined rheumatic disorders of mitral, aortic and tricuspid valves; I65.29 Occlusion and stenosis of unspecified carotid artery; I11.9 Hypertensive heart disease without heart failure; E78.5 Hyperlipidemia, unspecified
CPT/HCPCS: 93306; J2704

== ENCOUNTER 2020-09-02 22:43 | Emergency (ER) | payer MEDICARE ==
[~2020-09-02] VITALS: Ht 185.4 cm; Wt 150.0 kg
[2020-09-02 23:10] LABS: BASOPHILS % (AUTO) 1 % (0-1); EOSINOPHILS % (AUTO) 5 % (1-7); LYMPHOCYTES % (AUTO) 5 % (22-44); MEAN CORPUSCULAR HEMOGLOBIN 31.2 pg (27.5-34.5); MEAN CORPUSCULAR HGB CONC 31.6 g/dL (33.2-36.2); MEAN PLATELET VOLUME 7.4 fL (7.4-10.4); MONOCYTES % (AUTO) 9 % (2-9); NEUTROPHILS % (AUTO) 80 % (42-75); PLATELET COUNT 308 x10^3/uL (130-400); RED BLOOD COUNT 2.64 x10^6/uL (4.38-5.82); RED CELL DISTRIBUTION WIDTH 27.2 % (9.4-14.8)
[2020-09-02 23:19] LABS: ALBUMIN 3.3 g/dL (3.4-5.0); ANION GAP 7 mmol/L (5-15); CALCIUM 8.8 mg/dL (8.5-10.1); CHLORIDE 103 mmol/L (98-107); CREATININE 1.74 mg/dL (0.7-1.3)
[2020-09-03] MEDS ORDERED: HYDROmorphone 1 MG/ML, 1ML INJ IM STA (00:04)
[2020-09-03] MEDS ORDERED: KETOROLAC 60 MG/2 ML ONE (00:19)
[2020-09-03] MEDS ORDERED: HYDROmorphone 1 MG/ML, 1ML INJ ONE (00:20)
[2020-09-03] MEDS ORDERED: KETOROLAC 60 MG/2 ML IM ONE (00:30)
[2020-09-03 01:28] VITALS: BP 113/57
--- NOTE | 2020-09-03 01:38 | NUR ---
Patient given discharge instructions and they have confirmed that they understand the instructions. Patient was wheeled to discharge desk. No quesitons at time of discharge.
[2020-10-16] MEDS ORDERED: DICL20GE BC (14:57)
[2020-10-30] MEDS ORDERED: PSYL0.5215 PO (18:07)
[2020-10-30] MEDS ORDERED: IRON1TAB60 PO (18:07)
[2020-11-01] MEDS ORDERED: FURO80TA77 PO (16:10)
[2020-11-01] MEDS ORDERED: POTA-143 PO (16:10)
[2020-11-01] MEDS ORDERED: ALLO100T30 PO ×3 (16:10→16:12)
[2020-11-01] MEDS ORDERED: HYDR-3241 PO (16:10)
[2020-11-01] MEDS ORDERED: PRED20TA PO (16:10)
== END 2020-09-03 01:43 | disposition home or self-care (01) ==
LOC: ED 23:31
DX: M10.071 Idiopathic gout, right ankle and foot (principal); I11.0 Hypertensive heart disease with heart failure; I50.9 Heart failure, unspecified; K21.9 Gastro-esophageal reflux disease without esophagitis; Z87.891 Personal history of nicotine dependence
CPT/HCPCS: 36415; 73610; 80048; 82040; 84550; 85025; 96372; 99284; J1170; J1885

== ENCOUNTER → 2020-09-18 | Outpatient (CLI) | payer MEDICARE ==
[~2020-09-18] MED LIST changes: -POTA-143 PO; +POTA20TA6 PO
== END | disposition home or self-care (01) ==
LOC: CFH 14:58
PROVIDERS: ATTEND Student in an Organized Health Care Education/Training Program
DX: R60.0 Localized edema (principal); M79.661 Pain in right lower leg

== ENCOUNTER 2020-12-03 12:15 | Inpatient (IN) | payer MEDICARE ==
[~2020-12-03] VITALS: Ht 185.4 cm; Wt 145.6 kg
[2020-12-03] VITALS (8 sets, daily range): BP systolic 101–134; BP diastolic 48–70
[~2020-12-03 12:15] MED LIST changes: +ALLO100T30 PO; +DICL20GE BC; +HYDR-3241 PO; +IRON1TAB60 PO; +PRED20TA PO; +PSYL0.5215 PO
--- NOTE | 2020-12-03 12:47 | NUR ---
PT CAME IN CO WEAKNESS AND FATIGUE. PT WAS AT [facility] [address] AND THEY TOLD HIM HE HGB WAS 5.5. PT REPORTS THAT OVER THE LAST 18 MONTHS HE HAS GOTTEN MULTIPLE BLOOD TX. PT SAYS HE HAS BLACK STOOL BUT TAKES IRON PILLS. PT RESTING IN [facility]. EKG COMPLETE. CONNECTED TO ALL MONITORING EQUIPMENT
--- NOTE | 2020-12-03 13:10 | NUR ---
REPORT OF PT TO RAZA WELSH. ALL QUESTIONS ANSWERED.
[2020-12-03] MEDS ORDERED: SODIUM CHLORIDE FLUSH 10ML SYR IVF ONE (13:30)
[2020-12-03 13:55] LABS: ALANINE AMINOTRANSFERASE 12 U/L (12-78); ALBUMIN 2.9 g/dL (3.4-5.0); ANION GAP 7 mmol/L (5-15); CALCIUM 8.6 mg/dL (8.5-10.1); CHLORIDE 101 mmol/L (98-107); CREATININE 1.83 mg/dL (0.7-1.3)
[2020-12-03 13:57] LABS: MEAN CORPUSCULAR HEMOGLOBIN 31.3 pg (27.5-34.5); MEAN CORPUSCULAR HGB CONC 31.9 g/dL (33.2-36.2); MEAN PLATELET VOLUME 7.8 fL (7.4-10.4); PLATELET COUNT 307 x10^3/uL (130-400); RED CELL DISTRIBUTION WIDTH 24.8 % (9.4-14.8)
[2020-12-03 13:59] LABS: ALKALINE PHOSPHATASE 238 U/L (45-117); BILIRUBIN,TOTAL 0.7 mg/dL (0.2-1.0)
--- NOTE | 2020-12-03 14:10 | NUR ---
PT VSS AND UPDATED IN EMR. PT AMBULATES TO RESTROOM WITH A STEADY GAIT.
[2020-12-03] MEDS ORDERED: SODIUM CHLORIDE FLUSH 10ML SYR IVF PRN (15:00)
[2020-12-03 15:02] LABS: EOS#(MANUAL) 0.31 x10^3/uL (0.0-0.4); EOS% (MANUAL) 4 % (1-7); LYMPH#(MANUAL) 0.47 x10^3/uL (1-3.4); LYMPHS% (MANUAL) 6 % (22-44); MONOS#(MANUAL) 0.78 x10^3/uL (0.3-2.7); MONOS% (MANUAL) 10 % (2-9); SEG#(MANUAL) 6.24 x10^3/uL (1.8-6.8); SEGS% (MANUAL) 80 % (42-75)
[2020-12-03 15:03] LABS: ANISOCYTOSIS 1+; HYPOCHROMIA 1+; MICROCYTOSIS 1+; POLYCHROMASIA 1+; TEAR DROPS 1+
[2020-12-03 15:04] LABS: <PLATELET ESTIMATE> ADEQUATE; <PLT MORPHOLOGY> NORMAL PLT MORPH
[2020-12-03 15:23] LABS: MICROSCOPIC NOT IND
[2020-12-03] MEDS ORDERED: ONDANSETRON 2MG/ML, 2ML IVPush PRN (15:30)
[2020-12-03] MEDS ORDERED: ALBUTEROL HFA 90 MCG/SPRAY INH PRN (15:30)
[2020-12-03] MEDS ORDERED: ENALAPRILAT 1.25 MG/ML, 2ML IVPush PRN (15:30)
[2020-12-03] MEDS ORDERED: ACETAMINOPHEN 325 MG TABLET PO PRN (15:30)
--- NOTE | 2020-12-03 15:37 | NUR ---
ATTEMPTED REPORT TO AZAM X 1. PER FLOOR, RN AZAM WILL CALL BACK.
--- NOTE | 2020-12-03 15:57 | NUR ---
REPORT OF PT TO RN AZAM. ALL QUESTIONS ANSWERED.
[2020-12-03] MEDS ORDERED: FUROSEMIDE 40 MG/4 ML IV SCH (16:00)
[2020-12-03] MEDS: PANTOPRAZOLE 40MG TABLET PO SCH (18:11)
[2020-12-03] MEDS: CARVEDILOL 6.25 MG TABLET PO SCH (18:11)
[2020-12-03] MEDS: FUROSEMIDE 20 MG/2 ML IV SCH ×2 (18:12→21:17)
[2020-12-03] MEDS ORDERED: FUROSEMIDE 20 MG/2 ML IV SCH (21:00)
[2020-12-03] MEDS: POTASSIUM CHLORIDE 20 MEQ TAB.ER.PRT PO SCH (21:17)
[2020-12-03] MEDS: ATORVASTATIN 20 MG TABLET PO SCH (21:17)
[2020-12-03] MEDS: morphine SULFATE 10 MG/ML, 1ML IVPush PRN (23:59)
[2020-12-04 00:40] VITALS: BP 114/68
[2020-12-04 06:03] VITALS: BP 103/63
[2020-12-04] MEDS: morphine SULFATE 10 MG/ML, 1ML IVPush PRN ×2 (06:07→21:24)
[2020-12-04] MEDS: CARVEDILOL 6.25 MG TABLET PO SCH ×2 (06:07→17:27)
[2020-12-04] MEDS: PANTOPRAZOLE 40MG TABLET PO SCH ×2 (06:07→17:27)
[2020-12-04] MEDS: ALLOPURINOL 300 MG TABLET PO SCH (08:30)
[2020-12-04] MEDS: POTASSIUM CHLORIDE 20 MEQ TAB.ER.PRT PO SCH ×2 (08:32→21:23)
[2020-12-04] MEDS: FUROSEMIDE 20 MG/2 ML IV SCH ×3 (08:32→21:22)
[2020-12-04 09:28] LABS: ALANINE AMINOTRANSFERASE 10 U/L (12-78); ANION GAP 10 mmol/L (5-15); CALCIUM 8.7 mg/dL (8.5-10.1); CHLORIDE 101 mmol/L (98-107)
[2020-12-04 09:31] LABS: ALKALINE PHOSPHATASE 229 U/L (45-117)
[2020-12-04] MEDS ORDERED: METOLAZONE 5 MG TABLET PO SCH (10:00)
[2020-12-04] MEDS ORDERED: METOLAZONE 2.5 MG TABLET ONE (11:17)
[2020-12-04 12:27] VITALS: BP 102/63
[2020-12-04 21:00] VITALS: BP 105/66
[2020-12-04] MEDS: ATORVASTATIN 20 MG TABLET PO SCH (21:23)
[2020-12-04] MEDS: METOLAZONE 5 MG TABLET PO SCH (21:23)
[2020-12-05 00:07] VITALS: BP 109/67
[2020-12-05 06:01] VITALS: BP 111/69
[2020-12-05] MEDS: PANTOPRAZOLE 40MG TABLET PO SCH ×2 (06:04→18:46)
[2020-12-05] MEDS: CARVEDILOL 6.25 MG TABLET PO SCH ×2 (06:04→16:15)
[2020-12-05 07:09] VITALS: BP 111/67
[2020-12-05] MEDS: FUROSEMIDE 20 MG/2 ML IV SCH ×3 (09:44→21:25)
[2020-12-05] MEDS: ALLOPURINOL 300 MG TABLET PO SCH (09:44)
[2020-12-05] MEDS: METOLAZONE 5 MG TABLET PO SCH ×2 (09:44→21:25)
[2020-12-05] MEDS: POTASSIUM CHLORIDE 20 MEQ TAB.ER.PRT PO SCH ×2 (09:44→21:25)
[2020-12-05 10:31] LABS: ANION GAP 9 mmol/L (5-15); CHLORIDE 102 mmol/L (98-107)
[2020-12-05 10:34] LABS: ALANINE AMINOTRANSFERASE 11 U/L (12-78); ALKALINE PHOSPHATASE 224 U/L (45-117); BILIRUBIN,TOTAL 0.9 mg/dL (0.2-1.0); CREATININE 1.95 mg/dL (0.7-1.3); TOTAL PROTEIN 7.2 g/dL (6.4-8.2)
[2020-12-05 14:19] VITALS: BP 113/66
[2020-12-05] MEDS: IRON SUCROSE COMPLEX 100MG/5ML IV SCH (18:46)
[2020-12-05 20:11] VITALS: BP 110/63
[2020-12-05] MEDS: ATORVASTATIN 20 MG TABLET PO SCH (21:25)
[2020-12-06 01:05] VITALS: BP 114/75
[2020-12-06 05:45] VITALS: BP 110/68
[2020-12-06] MEDS: CARVEDILOL 6.25 MG TABLET PO SCH (05:46)
[2020-12-06] MEDS: PANTOPRAZOLE 40MG TABLET PO SCH (05:46)
[2020-12-06 07:56] VITALS: BP 102/64
[2020-12-06 09:08] LABS: BASOPHILS % (AUTO) 1 % (0-1); EOSINOPHILS % (AUTO) 5 % (1-7); LYMPHOCYTES % (AUTO) 8 % (22-44); MEAN CORPUSCULAR HEMOGLOBIN 31.4 pg (27.5-34.5); MEAN CORPUSCULAR HGB CONC 32.1 g/dL (33.2-36.2); MEAN PLATELET VOLUME 7.6 fL (7.4-10.4); MONOCYTES % (AUTO) 10 % (2-9); NEUTROPHILS % (AUTO) 76 % (42-75); PLATELET COUNT 324 x10^3/uL (130-400); RED BLOOD COUNT 2.62 x10^6/uL (4.38-5.82); RED CELL DISTRIBUTION WIDTH 23.5 % (9.4-14.8)
[2020-12-06 09:17] LABS: CALCIUM 9.3 mg/dL (8.5-10.1); CHLORIDE 100 mmol/L (98-107)
[2020-12-06 09:22] LABS: ALANINE AMINOTRANSFERASE 12 U/L (12-78); ALBUMIN 3.3 g/dL (3.4-5.0); ALKALINE PHOSPHATASE 229 U/L (45-117); ANION GAP 7 mmol/L (5-15); CREATININE 2.05 mg/dL (0.7-1.3); TOTAL PROTEIN 7.5 g/dL (6.4-8.2)
[2020-12-06] MEDS: POTASSIUM CHLORIDE 20 MEQ TAB.ER.PRT PO SCH (09:26)
[2020-12-06] MEDS: METOLAZONE 5 MG TABLET PO SCH (09:27)
[2020-12-06] MEDS: ALLOPURINOL 300 MG TABLET PO SCH (09:28)
[2020-12-06] MEDS: FUROSEMIDE 20 MG/2 ML IV SCH (09:30)
[2020-12-06] MEDS: IRON SUCROSE COMPLEX 100MG/5ML IV SCH (12:05)
[2020-12-06 12:08] VITALS: BP 103/62
== END 2020-12-06 14:55 | disposition home or self-care (01) | DRG 291 ==
LOC: ED 13:26 → EDIP 14:44 → 4EST 16:51
PROVIDERS: ADMIT Hospitalist; ATTEND Hospitalist
PROC: 30233N1 Transfusion of Nonautologous Red Blood Cells into Peripheral Vein, Percutaneous Approach (ICD-10-PCS; principal; 2020-12-03)
DX: I13.0 Hypertensive heart and chronic kidney disease with heart failure and stage 1 through stage 4 chronic kidney disease, or unspecified chronic kidney disease (principal); I50.43 Acute on chronic combined systolic (congestive) and diastolic (congestive) heart failure; Z68.41 Body mass index [BMI] 40.0-44.9, adult; E66.2 Morbid (severe) obesity with alveolar hypoventilation; E87.6 Hypokalemia; M10.9 Gout, unspecified; I27.20 Pulmonary hypertension, unspecified; K21.9 Gastro-esophageal reflux disease without esophagitis; D64.9 Anemia, unspecified; N18.30 Chronic kidney disease, stage 3 unspecified; Z88.1 Allergy status to other antibiotic agents; Z79.899 Other long term (current) drug therapy
CPT/HCPCS: 36415; 36430; 80053; 81003; 83880; 84550; 85014; 85018; 85025; 86850; 86900; 86923; 93005; 99285; G0378; J1756; J1940; J2270; P9016